=== PATIENT | female | born 1945 | race Caucasian/White ===

== ENCOUNTER → 2018-02-03 | Outpatient (CLI) | payer MEDICARE, BC ==
--- NOTE | 2018-02-03 12:48 | US ---
EXAMINATION TYPE: US venous doppler duplex LE RT DATE OF EXAM: 02/03/2018 12:29 PM COMPARISON: NONE CLINICAL HISTORY: Pain in Rt Leg M79.604. Severe right groin pain; prior DVT right leg SIDE PERFORMED: Right TECHNIQUE: The lower extremity deep venous system is examined utilizing real time linear array sonog fidencio with graded compression, doppler sonography and color-flow sonography. VESSELS IMAGED: Common Femoral Vein Deep Femoral Vein Greater Saphenous Vein * Femoral Vein Popliteal Vein Small Saphenous Vein * Proximal Calf Veins (* superficial vessels) Right Leg: Positive for non occluding DVT right CFV, and in upper duplicate Deep Femoral Vein Right popliteal complex fossa fluid collection is also noted = 3.8 x 2.9 x 1.5cm. Suspect small to m oderate-sized popliteal cyst. Tech findings called to [place] at Dr Alanis's [facility] at exam's end. IMPRESSION: Acute partial occlusive DVT is identified right groin region at level of common femora l vein extending into duplicated profunda femoris.
== END | disposition home or self-care (01) ==
LOC: RADUSWWP 11:49
PROVIDERS: ATTEND Family Medicine
DX: I82.411 Acute embolism and thrombosis of right femoral vein (principal)

== ENCOUNTER → 2020-07-31 | Outpatient (CLI) | payer MEDICARE, BC ==
--- NOTE | 2020-07-31 13:59 | US ---
EXAMINATION TYPE: US venous doppler duplex LE LT DATE OF EXAM: 07/31/2020 1:26 PM COMPARISON: NONE CLINICAL HISTORY: 75-year-old female M79.652 pain in left thigh. Pt fell Luigi Suzanne, having left l eg pain and bruising SIDE PERFORMED: Left TECHNIQUE: The lower extremity deep venous system is examined utilizing real time linear array sonog fidencio with graded compression, doppler sonography and color-flow sonography. FINDINGS: VESSELS IMAGED: Common Femoral Vein Deep Femoral Vein Greater Saphenous Vein * Femoral Vein Popliteal Vein Small Saphenous Vein * Proximal Calf Veins (* superficial vessels) Left Leg: Negative for DVT IMPRESSION: No evidence for DVT within the left lower extremity imaged from the groin to the upper calf.
== END | disposition home or self-care (01) ==
LOC: RADUSWWP 13:00
PROVIDERS: ATTEND Family Medicine
DX: M79.651 Pain in right thigh (principal); M79.652 Pain in left thigh

== ENCOUNTER 2022-04-04 09:27 | Emergency (ER) | payer MEDICARE, BC ==
[2022-04-04] MEDS ORDERED: hydrALAZINE HCL 20 MG/ML 1 ML VIAL IVP STA (09:41)
[2022-04-04] MEDS ORDERED: LORazepam 2 MG/ML INJ IV STA (09:41)
[2022-04-04 09:44] VITALS: RESP 18
--- NOTE | 2022-04-04 09:51 | ED ---
General Adult HPI - General Chief complaint: Headache Stated complaint: HTN Time Seen by Provider: 04/04/22 09:40 Source: patient, EMS, RN notes reviewed, old records reviewed Mode of arrival: EMS Limitations: no limitations - History of Present Illness Initial comments: This is a 77-year-old female who presents emergency Department complaining that her blood pressures elevated. Patient went to see her PCP today and her blood pressure systolic was over 200 so the center the emergency department. Patient's only complaint is a mild headache. Patient denies any numbness or weakness. Patient denies chest pain difficulty breathing shortness of breath. Patient denies abdominal pain patient denies nausea vomiting diarrhea. Patient states she's very anxious because she lost her at 58 years and she is having a very difficult time with this. - Related Data Home Medications Medication Instructions Recorded Confirmed Albuterol Nebulized [Ventolin 2.5 mg INHALATION RT-TID PRN 04/04/22 04/04/22 Nebulized] Albuterol Sulfate [Albuterol 1 puff PO RT-Q4H PRN 04/04/22 04/04/22 Sulfate Hfa] Amitriptyline HCl [Elavil] 50 mg PO HS 04/04/22 04/04/22 Aspirin EC [Ecotrin Low Dose] 81 mg PO DAILY 04/04/22 04/04/22 Atorvastatin Calcium [Lipitor] 40 mg PO DAILY 04/04/22 04/04/22 Milnacipran HCl [Savella] 12.5 mg PO BID 04/04/22 04/04/22 Pantoprazole Sodium [Protonix] 40 mg PO DAILY 04/04/22 04/04/22 Zolpidem [Ambien] 5 mg PO HS PRN 04/04/22 04/04/22 fentaNYL 100MCG/HR PATCH 1 patch TRANSDERM Q72H 04/04/22 04/04/22 [Duragesic 100MCG/HR] fentaNYL 12MCG/HR PATCH [Duragesic 1 patch TRANSDERM Q72H 04/04/22 04/04/22 12MCG/HR] tiZANidine [Zanaflex] 4 mg PO TID 04/04/22 04/04/22 Previous Rx's Medication Instructions Recorded amLODIPine [Norvasc] 5 mg PO DAILY #7 tab 04/04/22 Allergies Allergy/AdvReac Type Severity Reaction Status Date / Time gabapentin Allergy Unknown - Verified 04/04/22 09:52 Per PCP meloxicam [From Mobic] Allergy Unknown - Verified 04/04/22 09:52 Per PCP Penicillins Allergy Unknown - Verified 04/04/22 09:52 Per PCP Review of Systems ROS Statement: Those systems with pertinent positive or pertinent negative responses have been documented in the HPI. ROS Other: All systems not noted in ROS Statement are negative. Past Medical History History of Any Multi-Drug Resistant Organisms: None Reported Past Surgical History: Breast Surgery, Cholecystectomy, Hysterectomy, Tonsillectomy Additional Past Surgical History / Comment(s): bilateral mastectomy Past Psychological History: Anxiety Smoking Status: Never smoker Past Alcohol Use History: None Reported Past Drug Use History: None Reported General Exam - General Exam Comments Initial Comments: GENERAL: Patient is well-developed and well-nourished. Patient is nontoxic and well- hydrated and is in mild distress. ENT: Neck is soft and supple. No significant lymphadenopathy is noted. Oropharynx is clear. Moist mucous membranes. Neck has full range of motion without tobias citing any pain. EYES: The sclera were anicteric and conjunctiva were pink and moist. Extraocular movements were intact and pupils were equal round and reactive to light. Eyelids were unremarkable. PULMONARY: Unlabored respirations. Good breath sounds bilaterally. No audible rales rhonchi or wheezing was noted. CARDIOVASCULAR: There is a regular rate and rhythm without any murmurs gallops or rubs. ABDOMEN: Soft and nontender with normal bowel sounds. SKIN: Skin is clear with no lesions or rashes and otherwise unremarkable. NEUROLOGIC: Patient is alert and oriented x3. Cranial nerves II through XII are grossly intact. Motor and sensory are also intact. Normal speech, volume and content. Symmetrical smile. MUSCULOSKELETAL: Normal extremities with adequate strength and full range of motion. LYMPHATICS: No significant lymphadenopathy is noted PSYCHIATRIC: Patient is mildly anxious Limitations: no limitations Course Vital Signs 04/04/22 09:39 Temperature 98.3 F Pulse Rate 76 Respiratory 18 Rate Blood Pressure 204/87 O2 Sat by Pulse 95 Oximetry Medical Decision Making - Medical Decision Making EKG shows sinus rhythm at 71 bpm SC interval 182 QRS is 78 QT interval 396 QTC is 419. Patient's EKG shows no ST segment elevation or depression. Patient received 20 of hydralazine and 0.5 of Ativan. Patient's blood pressure came down about 40 points systolically to 167/63 - Lab Data Result diagrams: 04/04/22 09:47 04/04/22 09:47 Lab Results 04/04/22 04/04/22 04/04/22 Range/Units 09:47 09:47 09:47 WBC 7.4 (3.8-10.6) k/uL RBC 4.39 (3.80-5.40) m/uL Hgb 12.6 (11.4-16.0) gm/dL Hct 39.1 (34.0-46.0) % MCV 89.1 (80.0-100.0) fL MCH 28.6 (25.0-35.0) pg MCHC 32.2 (31.0-37.0) g/dL RDW 13.9 (11.5-15.5) % Plt Count 377 (150-450) k/uL MPV 7.5 Neutrophils % 79 % Lymphocytes % 14 % Monocytes % 3 % Eosinophils % 2 % Basophils % 1 % Neutrophils # 5.8 (1.3-7.7) k/uL Lymphocytes # 1.0 (1.0-4.8) k/uL Monocytes # 0.3 (0-1.0) k/uL Eosinophils # 0.2 (0-0.7) k/uL Basophils # 0.1 (0-0.2) k/uL PT 10.5 (9.0-12.0) sec INR 1.0 (<1.2) APTT 24.6 (22.0-30.0) sec Sodium 139 (137-145) mmol/L Potassium 4.0 (3.5-5.1) mmol/L Chloride 107 (98-107) mmol/L Carbon Dioxide 23 (22-30) mmol/L Anion Gap 9 mmol/L BUN 13 (7-17) mg/dL Creatinine 0.56 (0.52-1.04) mg/dL Est GFR (CKD-EPI)AfAm >90 (>60 ml/min/1.73 sqM) Est GFR (CKD-EPI)NonAf 89 (>60 ml/min/1.73 sqM) Glucose 109 H (74-99) mg/dL Calcium 8.8 (8.4-10.2) mg/dL Magnesium 1.9 (1.6-2.3) mg/dL Total Bilirubin 0.7 (0.2-1.3) mg/dL AST 28 (14-36) U/L ALT 13 (4-34) U/L Alkaline Phosphatase 103 (38-126) U/L Troponin I (0.000-0.034) ng/mL Total Protein 6.9 (6.3-8.2) g/dL Albumin 4.0 (3.5-5.0) g/dL 04/04/22 Range/Units 09:47 WBC (3.8-10.6) k/uL RBC (3.80-5.40) m/uL Hgb (11.4-16.0) gm/dL Hct (34.0-46.0) % MCV (80.0-100.0) fL MCH (25.0-35.0) pg MCHC (31.0-37.0) g/dL RDW (11.5-15.5) % Plt Count (150-450) k/uL MPV Neutrophils % % Lymphocytes % % Monocytes % % Eosinophils % % Basophils % % Neutrophils # (1.3-7.7) k/uL Lymphocytes # (1.0-4.8) k/uL Monocytes # (0-1.0) k/uL Eosinophils # (0-0.7) k/uL Basophils # (0-0.2) k/uL PT (9.0-12.0) sec INR (<1.2) APTT (22.0-30.0) sec Sodium (137-145) mmol/L Potassium (3.5-5.1) mmol/L Chloride (98-107) mmol/L Carbon Dioxide (22-30) mmol/L Anion Gap mmol/L BUN (7-17) mg/dL Creatinine (0.52-1.04) mg/dL Est GFR (CKD-EPI)AfAm (>60 ml/min/1.73 sqM) Est GFR (CKD-EPI)NonAf (>60 ml/min/1.73 sqM) Glucose (74-99) mg/dL Calcium (8.4-10.2) mg/dL Magnesium (1.6-2.3) mg/dL Total Bilirubin (0.2-1.3) mg/dL AST (14-36) U/L ALT (4-34) U/L Alkaline Phosphatase (38-126) U/L Troponin I <0.012 (0.000-0.034) ng/mL Total Protein (6.3-8.2) g/dL Albumin (3.5-5.0) g/dL Disposition Clinical Impression: Hypertensive urgency, Anxiety Disposition: HOME SELF-CARE Instructions (If sedation given, give patient instructions): Hypertension (ED) Additional Instructions: Patient should take her blood pressure before every meal and before bed and document so that she can follow up with some data with her primary medical care doctor. Prescriptions: amLODIPine [Norvasc] 5 mg PO DAILY #7 tab Is patient prescribed a controlled substance at d/c from ED?: No Referrals: Paddy Alanis MD [Primary Care Provider] - 1-2 days Time of Disposition: 11:29
[2022-04-04 10:23] LABS: Basophils # (A) 0.1 k/uL (0-0.2); Basophils % (A) 1 %; Eosinophils # (A) 0.2 k/uL (0-0.7); Eosinophils % (A) 2 %; HCT 39.1 % (34.0-46.0); HGB 12.6 gm/dL (11.4-16.0); Lymphocytes % (A) 14 %; MCH 28.6 pg (25.0-35.0); MCHC 32.2 g/dL (31.0-37.0); MCV 89.1 fL (80.0-100.0); Mean Platelet Volume 7.5; Monocytes # (A) 0.3 k/uL (0-1.0); Monocytes % (A) 3 %; Neutrophils # (A) 5.8 k/uL (1.3-7.7); Neutrophils % (A) 79 %; Platelet Count 377 k/uL (150-450); RBC 4.39 m/uL (3.80-5.40); RDW 13.9 % (11.5-15.5); WBC 7.4 k/uL (3.8-10.6)
[2022-04-04 10:30] LABS: ALT 13 U/L (4-34); AST 28 U/L (14-36); African American GFR (CKD) >90 (>60 ml/min/1.73 sqM); Alkaline Phosphatase 103 U/L (38-126); Anion Gap 9 mmol/L; Blood Urea Nitrogen 13 mg/dL (7-17); Calcium 8.8 mg/dL (8.4-10.2); Carbon Dioxide 23 mmol/L (22-30); Chloride 107 mmol/L (98-107); Glucose 109 mg/dL (74-99); Magnesium 1.9 mg/dL (1.6-2.3); Non-African American GFR(CKD) 89 (>60 ml/min/1.73 sqM); Sodium 139 mmol/L (137-145); Total Bilirubin 0.7 mg/dL (0.2-1.3); Total Protein 6.9 g/dL (6.3-8.2)
[2022-04-04 10:33] LABS: Partial Thromboplastin Time 24.6 sec (22.0-30.0); Prothrombin Time 10.5 sec (9.0-12.0)
--- NOTE | 2022-04-04 11:04 | CT ---
EXAM: CT Head Without Intravenous Contrast CLINICAL HISTORY: Hypertension and headache for 2 days. Not currently on HTN meds TECHNIQUE: Axial computed tomography images of the head/brain without intravenous contrast. CTDI is 53.5 mGy and DLP is 1142.4 mGy-cm. This CT exam was performed using one or more of the following dose reduction techniques: automated exposure control, adjustment of the mA and/or kV according to patient size, and/or use of iterative reconstruction technique. COMPARISON: None FINDINGS: There is no acute intracranial hemorrhage or major vascular territory infarct. No mass effect or midline shift seen. There is prominence of the ventricles and sulci consistent with generalized parenchymal volume loss. Scattered hypodensities throughout the periventricular and subcortical white matter are noted, likely sequela of chronic microvascular changes. The calvarium is intact. Bilateral lens replacements noted. The visualized paranasal sinuses and mastoid air cells are clear. IMPRESSION: No acute intracranial pathology. Generalized parenchymal volume loss and sequela of chronic microvascular ischemic angiopathy.
--- NOTE | 2022-04-04 11:19 | XR ---
EXAM: XR Chest, 2 Views CLINICAL HISTORY: ITS. REASON XR Reason: Chest Pain TECHNIQUE: Frontal and lateral views of the chest. COMPARISON: No relevant prior studies available. FINDINGS: Lungs: Bronchial wall thickening to be correlated for bronchitis. Pleural space: Unremarkable. No pneumothorax. Heart: Borderline cardiomegaly. Mediastinum: Aortic atherosclerosis. Bones/joints: Osteopenia and degenerative changes. Thoracolumbar levocurvature. IMPRESSION: Bronchial wall thickening. Correlate for bronchitis. No lobar consolidation. Borderline cardiomegaly. No overt edema.
[2022-04-04] MEDS ORDERED: KETOROLAC 15 MG/ML 1 ML VIAL IVP STA (11:31)
[2022-04-04 12:02] VITALS: BP 164/70; PULSE 98; TEMP 97.5
== END 2022-04-04 11:59 | disposition home or self-care (01) ==
LOC: EC 09:27
DX: I16.0 Hypertensive urgency (principal); F41.9 Anxiety disorder, unspecified; Z88.0 Allergy status to penicillin; Z88.6 Allergy status to analgesic agent; Z88.8 Allergy status to other drugs, medicaments and biological substances
CPT/HCPCS: 99285; 96374; 96375; 36415; 93005; 80053; 83735; 84484; 85025; 85610; 85730; 71046; 70450; J2060; J0360; J1885

== ENCOUNTER 2024-06-20 12:34 | Emergency (ER) | payer MEDICARE, BC ==
[2024-06-20 12:48] VITALS: TEMP 98.3
[2024-06-20 14:29] LABS: ALT 13 U/L (4-34); AST 23 U/L (14-36); Acetaminophen 20.2 ug/mL; African American GFR (CKD) 78 (>60 ml/min/1.73 sqM); Albumin 4.3 g/dL (3.5-5.0); Alcohol <10 mg/dL; Alkaline Phosphatase 74 U/L (38-126); Anion Gap 12 mmol/L; Blood Urea Nitrogen 18 mg/dL (7-17); Calcium 9.3 mg/dL (8.4-10.2); Carbon Dioxide 20 mmol/L (22-30); Chloride 109 mmol/L (98-107); Glucose 134 mg/dL (74-99); Non-African American GFR(CKD) 67 (>60 ml/min/1.73 sqM); Potassium 3.8 mmol/L (3.5-5.1); Salicylate 12.6 mg/dL; Sodium 141 mmol/L (137-145); Total Bilirubin 0.5 mg/dL (0.2-1.3); Total Protein 7.6 g/dL (6.3-8.2)
--- NOTE | 2024-06-20 14:30 | XR ---
EXAMINATION TYPE: XR chest 2V DATE OF EXAM: 06/20/2024 CLINICAL HISTORY: Confusion and weakness. TECHNIQUE: Frontal and lateral views of the chest are obtained. COMPARISON: Prior chest x-ray April 04, 2022 FINDINGS: Overlying EKG leads are redemonstrated. There is no suspicious focal air space opacity, ple ural effusion, or pneumothorax seen. The cardiac silhouette size is stable and within normal limits. Scoliosis of the thoracolumbar spine is redemonstrated. IMPRESSION: No acute process. [facility], , 06/20/2024 2:28 PM
[2024-06-20 14:40] LABS: Basophils # (A) 0.1 k/uL (0-0.2); Basophils % (A) 1 %; Eosinophils % (A) 1 %; HCT 45.6 % (34.0-46.0); HGB 14.5 gm/dL (11.4-16.0); Lymphocytes # (A) 1.4 k/uL (1.0-4.8); Lymphocytes % (A) 17 %; MCH 27.9 pg (25.0-35.0); MCHC 31.7 g/dL (31.0-37.0); Monocytes # (A) 0.5 k/uL (0-1.0); Monocytes % (A) 5 %; Neutrophils # (A) 6.3 k/uL (1.3-7.7); Neutrophils % (A) 75 %; Platelet Count 360 k/uL (150-450); RBC 5.18 m/uL (3.80-5.40); RDW 14.4 % (11.5-15.5); WBC 8.4 k/uL (3.8-10.6)
[2024-06-20 14:59] LABS: Partial Thromboplastin Time 23.4 sec (22.0-30.0); Prothrombin Time 11.3 sec (10.0-12.5)
[2024-06-20] MEDS: ACETAMINOPHEN TAB 325 MG TAB PO STA (16:08)
--- NOTE | 2024-06-20 17:03 | ED ---
Altered Mental Status HPI - General Chief Complaint: Altered Mental Status Stated Complaint: AMS Time Seen by Provider: 06/20/24 12:45 Source: patient, family Mode of arrival: ambulatory Limitations: no limitations - History of Present Illness Initial Comments: 79-year-old female brought into the emergency department accompanied by her granddaughter. They are concerned about the patient being confused today. They state that they went to pick her up at her house and she was stating that she wanted to go home. She did not think that she was at her house. They state that the patient has had waxing and waning confusion for the past couple of months. There is concern for possible dementia. Patient has been leaving the house in the middle of the night and there were several times when the daughter and granddaughter had to search for the patient. Patient arrives and is very ornery. She denies any symptoms. States that she knew on to come to the hospital in the first place. Patient has difficulty answering orientation questions. There is no lateralizing symptoms. Denies any weakness in her upper or lower extremities. No falls. No head injury. They are concerned for possible UTI. Patient has no symptoms to include dysuria, hematuria or difficulty voiding. No bowel symptoms to include diarrhea, constipation, black or bloody stools. No recent medication changes. No report of any drug use. Patient does have a history of A-fib and takes Eliquis. No other alleviating, precipitating modifying factors - Related Data Home Medications Medication Instructions Recorded Confirmed Albuterol Nebulized [Ventolin 2.5 mg INHALATION RT-TID PRN 04/04/22 06/28/24 Nebulized] Albuterol Sulfate [Albuterol 2 puff INHALATION RT-Q4H PRN 04/04/22 06/28/24 Sulfate Hfa] Aspirin EC [Ecotrin Low Dose] 81 mg PO DAILY 04/04/22 06/28/24 Milnacipran HCl [Savella] 12.5 mg PO BID 04/04/22 06/28/24 Pantoprazole Sodium [Protonix] 40 mg PO DAILY 04/04/22 06/28/24 fentaNYL 100MCG/HR PATCH 1 patch TRANSDERM Q72H 04/04/22 06/28/24 [Duragesic 100MCG/HR] tiZANidine [Zanaflex] 4 mg PO TID PRN 04/04/22 06/28/24 Apixaban [Eliquis] 5 mg PO BID 06/20/24 06/28/24 Atorvastatin [Lipitor] 80 mg PO DAILY 06/20/24 06/28/24 Sertraline [Zoloft] 25 mg PO DAILY 06/20/24 06/28/24 traZODone HCL [Desyrel] 25 mg PO HS 06/28/24 06/28/24 Previous Rx's Medication Instructions Recorded amLODIPine [Norvasc] 5 mg PO DAILY #7 tab 04/04/22 Allergies Allergy/AdvReac Type Severity Reaction Status Date / Time gabapentin Allergy Unknown - Verified 06/28/24 11:39 Per PCP meloxicam [From Mobic] Allergy Unknown - Verified 06/28/24 11:39 Per PCP Penicillins Allergy Unknown - Verified 06/28/24 11:39 Per PCP warfarin Allergy Unknown Verified 06/28/24 11:39 Review of Systems ROS Statement: Those systems with pertinent positive or pertinent negative responses have been documented in the HPI. ROS Other: All systems not noted in ROS Statement are negative. Past Medical History Past Medical History: Atrial Fibrillation, Asthma, GERD/Reflux, Hyperlipidemia, Hypertension, Myocardial Infarction (CT) History of Any Multi-Drug Resistant Organisms: None Reported Past Surgical History: Breast Surgery, Cholecystectomy, Hysterectomy, Joint Replacement, Tonsillectomy Additional Past Surgical History / Comment(s): bilateral mastectomy Past Psychological History: Anxiety, Depression Smoking Status: Never smoker Past Alcohol Use History: None Reported Past Drug Use History: None Reported General Exam Limitations: no limitations General appearance: alert, in no apparent distress Head exam: Present: atraumatic, normocephalic, normal inspection Eye exam: Present: normal appearance, PERRL, EOMI. Absent: scleral icterus, conjunctival injection, periorbital swelling ENT exam: Present: normal exam, mucous membranes moist Neck exam: Present: normal inspection. Absent: tenderness, meningismus, lymphadenopathy Respiratory exam: Present: normal lung sounds bilaterally. Absent: respiratory distress, wheezes, rales, rhonchi, stridor Cardiovascular Exam: Present: regular rate, normal rhythm, normal heart sounds. Absent: systolic murmur, diastolic murmur, rubs, gallop, clicks GI/Abdominal exam: Present: soft, normal bowel sounds. Absent: distended, tenderness, guarding, rebound, rigid Extremities exam: Present: normal inspection, full ROM, normal capillary refill. Absent: tenderness, pedal edema, joint swelling, calf tenderness Back exam: Present: normal inspection Neurological exam: Present: alert, CN II-XII intact, other (Patient is oriented to self. With time, the patient is oriented to place) Psychiatric exam: Present: normal affect, normal mood Skin exam: Present: warm, dry, intact, normal color. Absent: rash Course Vital Signs 06/20/24 06/20/24 12:43 18:07 Temperature 98.3 F Pulse Rate 128 H 62 Respiratory 18 16 Rate Blood Pressure 123/84 135/85 O2 Sat by Pulse 97 98 Oximetry Medical Decision Making - Medical Decision Making Was pt. sent in by a medical professional or institution (Dr. PA, DIGITAL MARKETING MANAGER, urgent care, hospital, or fdc...) When possible be specific @ -No Did you speak to anyone other than the patient for history (EMS, parent, family, police, friend...)? What history was obtained from this source @ -I spoke with granddaughter and daughter for history Did you review nursing and triage notes (agree or disagree)? Why? @ -I reviewed and agree with nursing and triage notes Were old charts reviewed (outside hosp., previous admission, EMS record, old EKG, old radiological studies, urgent care reports/EKG's, fdc records)? Report findings @ -No old charts were reviewed Differential Diagnosis (chest pain, altered mental status, abdominal pain women, abdominal pain men, vaginal bleeding, weakness, fever, dyspnea, syncope, headache, dizziness, GI bleed, back pain, seizure, CVA, palpatations, mental health, musculoskeletal)? @ -Differential Altered Mental Status: Hypoglycemia, DKA, hypercapnia, ETOH, overdose, CO poisoning, trauma, myxedema coma, HTN encephalopathy, infection, encephalitis, psychosis, intercranial hemorrhage, hepatic encephalopathy, meningitis, CVA, this is not meant to be an all-inclusive list EKG interpreted by me (3pts min.). @ -yes and demonstrates atrial flutter with a rate of 105. QRS 78. QTc of 410. No acute ST segment elevations or depressions X-rays interpreted by me (1pt min.). @ -None done CT interpreted by me (1pt min.). @ -Yes which demonstrates no acute process U/S interpreted by me (1pt. min.). @ -None done What testing was considered but not performed or refused? (CT, X-rays, U/S, labs)? Why? @ -None What meds were considered but not given or refused? Why? @ -None Did you discuss the management of the patient with other professionals (professionals i.e. Dr., PA, DIGITAL MARKETING MANAGER, lab, RT, psych nurse, psychologist social, pulmonary nurse practitioner, teacher, credit administration officer, casey saw operator)? Give summary @ -No Was smoking cessation discussed for >3mins.? @ -No Was critical care preformed (if so, how long)? @ -No Were there social determinants of health that impacted care today? How? (Homelessness, low income, unemployed, alcoholism, drug addiction, transportation, low edu. Level, literacy, decrease access to med. care, half-way, rehab)? @ -No Was there de-escalation of care discussed even if they declined (Discuss DNR or withdrawal of care, Hospice)? DNR status @ -No What co-morbidities impacted this encounter? (DM, HTN, Smoking, COPD, CAD, Cancer, CVA, ARF, Chemo, Hep., AIDS, mental health diagnosis, sleep apnea, morbi d obesity)? @ -Chronic pain Was patient admitted / discharged? Hospital course, mention meds given and route, prescriptions, significant lab abnormalities, going to OR and other pertinent info. @ -Upon arrival patient seen and evaluated in room 5. Thorough history and physical exam was performed. Patient is limited in providing history as she states she does not want to be in the emergency department. She was agreeable to laboratory studies and a CT of the brain. These are performed with no acute findings. Urinalysis does not demonstrate infection. CT the brain demonstrates no acute process. I did recommend that the patient be admitted to the hospital due to alterations in mental status however family states that this has been chronic and progressive with today being the worst. They do feel that she is safe at home and wanted to rule out any type of infection. Patient is awake, alert. She is adamant that she does not want to be hospitalized. Family does not support the decision. At this time I did recommend frequent evaluation of the patient daily by family members. I recommend that they talk to their primary care doctor about possible new placement as I am concerned about the patient living on her own without full assistance. Granddaughter states that she is able to watch after the patient. I instructed them that they should return for any new or worsening symptoms or should they be agreeable to admission. Patient discharged with a guarded prognosis Undiagnosed new problem with uncertain prognosis? @ -No Drug Therapy requiring intensive monitoring for toxicity (Heparin, Nitro, Insulin, Cardizem)? @ -No Were any procedures done? @ -No Diagnosis/symptom? @ -Acute on chronic encephalopathy Acute, or Chronic, or Acute on Chronic? @ -Acute Uncomplicated (without systemic symptoms) or Complicated (systemic symptoms)? @ -Complicated Side effects of treatment? @ -No Exacerbation, Progression, or Severe Exacerbation? @ -No Poses a threat to life or bodily function? How? (Chest pain, USA, CT, pneumonia, PE, COPD, DKA, ARF, appy, cholecystitis, CVA, Diverticulitis, Homicidal, Suicidal, threat to staff... and all critical care pts) @ -Yes his family states that she has been getting out of the house - Lab Data Result diagrams: 06/20/24 14:08 06/20/24 14:08 Lab Results 06/20/24 06/20/24 06/20/24 Range/Units 14:08 14:08 14:08 WBC 8.4 (3.8-10.6) k/uL RBC 5.18 (3.80-5.40) m/uL Hgb 14.5 (11.4-16.0) gm/dL Hct 45.6 (34.0-46.0) % MCV 88.0 (80.0-100.0) fL MCH 27.9 (25.0-35.0) pg MCHC 31.7 (31.0-37.0) g/dL RDW 14.4 (11.5-15.5) % Plt Count 360 (150-450) k/uL MPV 8.0 Neutrophils % 75 % Lymphocytes % 17 % Monocytes % 5 % Eosinophils % 1 % Basophils % 1 % Neutrophils # 6.3 (1.3-7.7) k/uL Lymphocytes # 1.4 (1.0-4.8) k/uL Monocytes # 0.5 (0-1.0) k/uL Eosinophils # 0.0 (0-0.7) k/uL Basophils # 0.1 (0-0.2) k/uL PT 11.3 (10.0-12.5) sec INR 1.0 (<1.2) APTT 23.4 (22.0-30.0) sec Sodium 141 (137-145) mmol/L Potassium 3.8 (3.5-5.1) mmol/L Chloride 109 H (98-107) mmol/L Carbon Dioxide 20 L (22-30) mmol/L Anion Gap 12 mmol/L BUN 18 H (7-17) mg/dL Creatinine 0.82 (0.52-1.04) mg/dL Est GFR (CKD-EPI)AfAm 78 (>60 ml/min/1.73 sqM) Est GFR (CKD-EPI)NonAf 67 (>60 ml/min/1.73 sqM) Glucose 134 H (74-99) mg/dL Calcium 9.3 (8.4-10.2) mg/dL Total Bilirubin 0.5 (0.2-1.3) mg/dL AST 23 (14-36) U/L ALT 13 (4-34) U/L Alkaline Phosphatase 74 (38-126) U/L Ammonia (<30) umol/L Troponin I (0.000-0.034) ng/mL Total Protein 7.6 (6.3-8.2) g/dL Albumin 4.3 (3.5-5.0) g/dL TSH 0.791 (0.465-4.680) mIU/L Urine Color Urine Appearance (Clear) Urine pH (5.0-8.0) Ur Specific [place] (1.001-1.035) Urine Protein (Negative) Urine Glucose (UA) (Negative) Urine Ketones (Negative) Urine Blood (Negative) Urine Nitrite (Negative) Urine Bilirubin (Negative) Urine Urobilinogen (<2.0) mg/dL Ur Leukocyte Esterase (Negative) Salicylates 12.6 mg/dL Urine Opiates Screen (NotDetected) Ur Oxycodone Screen (NotDetected) Urine Methadone Screen (NotDetected) Acetaminophen 20.2 ug/mL Ur Barbiturates Screen (NotDetected) U Tricyclic Antidepress (NotDetected) Ur Phencyclidine Scrn (NotDetected) Ur Amphetamines Screen (NotDetected) U Methamphetamines Scrn (NotDetected) U Benzodiazepines Scrn (NotDetected) Urine Cocaine Screen (NotDetected) U Marijuana (THC) Screen (NotDetected) Serum Alcohol <10 mg/dL 06/20/24 06/20/24 06/20/24 Range/Units 14:08 14:08 17:37 WBC (3.8-10.6) k/uL RBC (3.80-5.40) m/uL Hgb (11.4-16.0) gm/dL Hct (34.0-46.0) % MCV (80.0-100.0) fL MCH (25.0-35.0) pg MCHC (31.0-37.0) g/dL RDW (11.5-15.5) % Plt Count (150-450) k/uL MPV Neutrophils % % Lymphocytes % % Monocytes % % Eosinophils % % Basophils % % Neutrophils # (1.3-7.7) k/uL Lymphocytes # (1.0-4.8) k/uL Monocytes # (0-1.0) k/uL Eosinophils # (0-0.7) k/uL Basophils # (0-0.2) k/uL PT (10.0-12.5) sec INR (<1.2) APTT (22.0-30.0) sec Sodium (137-145) mmol/L Potassium (3.5-5.1) mmol/L Chloride (98-107) mmol/L Carbon Dioxide (22-30) mmol/L Anion Gap mmol/L BUN (7-17) mg/dL Creatinine (0.52-1.04) mg/dL Est GFR (CKD-EPI)AfAm (>60 ml/min/1.73 sqM) Est GFR (CKD-EPI)NonAf (>60 ml/min/1.73 sqM) Glucose (74-99) mg/dL Calcium (8.4-10.2) mg/dL Total Bilirubin (0.2-1.3) mg/dL AST (14-36) U/L ALT (4-34) U/L Alkaline Phosphatase (38-126) U/L Ammonia <9 (<30) umol/L Troponin I <0.012 (0.000-0.034) ng/mL Total Protein (6.3-8.2) g/dL Albumin (3.5-5.0) g/dL TSH (0.465-4.680) mIU/L Urine Color Yellow Urine Appearance Clear (Clear) Urine pH 5.5 (5.0-8.0) Ur Specific [place] 1.038 H (1.001-1.035) Urine Protein Trace H (Negative) Urine Glucose (UA) Negative (Negative) Urine Ketones Negative (Negative) Urine Blood Negative (Negative) Urine Nitrite Negative (Negative) Urine Bilirubin Negative (Negative) Urine Urobilinogen <2.0 (<2.0) mg/dL Ur Leukocyte Esterase Negative (Negative) Salicylates mg/dL Urine Opiates Screen Not Detected (NotDetected) Ur Oxycodone Screen Not Detected (NotDetected) Urine Methadone Screen Not Detected (NotDetected) Acetaminophen ug/mL Ur Barbiturates Screen Not Detected (NotDetected) U Tricyclic Antidepress Not Detected (NotDetected) Ur Phencyclidine Scrn Not Detected (NotDetected) Ur Amphetamines Screen Not Detected (NotDetected) U Methamphetamines Scrn Not Detected (NotDetected) U Benzodiazepines Scrn Detected H (NotDetected) Urine Cocaine Screen Not Detected (NotDetected) U Marijuana (THC) Screen Detected H (NotDetected) Serum Alcohol mg/dL Disposition Clinical Impression: Acute encephalopathy Disposition: HOME SELF-CARE Condition: Stable Instructions (If sedation given, give patient instructions): Altered Mental Status (ED) Additional Instructions: Please follow-up with your doctor at your scheduled appointment. They may recommend that you see a neurologist. Return for any new or worsening symptoms Is patient prescribed a controlled substance at d/c from ED?: No Referrals: Paddy Alanis MD [Primary Care Provider] - 1-2 days Time of Disposition: 17:56
--- NOTE | 2024-06-20 17:44 | CT ---
EXAMINATION TYPE: CT brain wo con DATE OF EXAM: 06/20/2024 5:22 PM COMPARISON: December 16. CLINICAL INDICATION: Female, 79 years old with history of ams, confusion TECHNIQUE: Brain: Axial CT images of the brain were obtained with coronal and sagittal reformats created and rev iewed. Contrast used: None. Oral contrast used: None. CT DLP: 1168 mGycm, Automated exposure control for dose reduction was used. FINDINGS: Brain: Extra-axial spaces: No abnormal extra-axial fluid collections. Ventricular system: Dilatation in proportion to cerebral atrophy. Cerebral parenchyma: Cerebral atrophy. No acute intraparenchymal hemorrhage or mass effect. The willams -white junction is well differentiated. Scattered hypoattenuating areas are seen within the white mat ter. Cerebellum: Unremarkable. Mass effect: No evidence of midline shift. Intracranial vasculature: Atherosclerotic calcifications of the intracranial vessels. Soft tissues: Normal. Calvarium/osseous structures: No depressed skull fracture. Paranasal sinuses and mastoid air cells: Mild scattered paranasal sinus disease. Visualized orbits: Bilateral aphakia IMPRESSION: 1. No acute intracranial process. 2. Nonspecific white matter changes, likely secondary to chronic small vessel ischemic disease. [facility], , 06/20/2024 5:42 PM
[2024-06-20 17:49] LABS: Appearance,Urine Clear (Clear); Bilirubin,Urine Negative (Negative); Blood,Urine Negative (Negative); Color,Urine Yellow; Glucose,Urine (UA) Negative (Negative); Ketones,Urine Negative (Negative); Leukocyte Esterase,Urine Negative (Negative); Nitrite,Urine Negative (Negative); PH, Urine 5.5 (5.0-8.0); Protein,Urine Trace (Negative); Specific Gravity,Urine 1.038 (1.001-1.035); Urobilinogen,Urine <2.0 mg/dL (<2.0)
[2024-06-20 18:01] LABS: Amphetamine Screen,Urine Not Detected (NotDetected); Barbiturate Screen,Urine Not Detected (NotDetected); Benzodiazepines Screen,Urine Detected (NotDetected); Cocaine Screen,Urine Not Detected (NotDetected); Methadone Screen, Urine Not Detected (NotDetected); Opiate Screen,Urine Not Detected (NotDetected); Oxycodone Screen, Urine Not Detected (NotDetected); Phencyclidine Screen,Urine Not Detected (NotDetected); Tricyclic Antidepressant,Urine Not Detected (NotDetected); Urn Cannabinoid Scrn Detected (NotDetected)
[2024-06-20 18:08] VITALS: BP 135/85; PULSE 62; RESP 16
== END 2024-06-20 18:10 | disposition home or self-care (01) ==
LOC: EC 12:34
DX: G93.40 Encephalopathy, unspecified (principal); Z88.0 Allergy status to penicillin; Z88.8 Allergy status to other drugs, medicaments and biological substances
CPT/HCPCS: 36415; 93005; 80053; 84443; 82140; 84484; 85025; 85610; 85730; 81003; 80306; 80143; 80179; 71046; 70450; 99285; G0480; 80320; 99284

== ENCOUNTER 2024-06-27 14:19 | Inpatient (IN) | payer BC, MEDICARE ==
--- NOTE | 2024-06-27 14:21 | ED ---
General Adult HPI - General Stated complaint: poss overdose Time Seen by Provider: 06/27/24 14:20 - History of Present Illness Initial comments: Rhonda is-year-old female brought to the ER today for evaluation of altered mental status. History is provided by EMS and the patient family. Lives at home with her 37-year-old son who is on disability due to cognitive delay, he is able to communicate with his sister and the patient's granddaughter whenever the patient has any needs. Granddaughter who is a nurse practitioner reports she has been getting called daily to come check on her grandma. She was there on Friday she bathed her grandmother placed a new fentanyl patch on her which she has for her chronic back pain. Son called family today because there grandma was altered, slurring her speech not really making sense. Granddaughter came to assess her and noted that the patient had 3 fentanyl patches on her, she suspects the patient place these on herself. She removed 2 of them but patient did not improve so EMS was called for transport to the hospital. EMS reports that the patient was somnolent somnolent but did wake to voice they did give her a dose of Narcan the patient began vomiting. - Related Data Home Medications Medication Instructions Recorded Confirmed Albuterol Nebulized [Ventolin 2.5 mg INHALATION RT-TID PRN 04/04/22 06/20/24 Nebulized] Albuterol Sulfate [Albuterol 2 puff INHALATION RT-Q4H PRN 04/04/22 06/20/24 Sulfate Hfa] Aspirin EC [Ecotrin Low Dose] 81 mg PO DAILY 04/04/22 06/20/24 Milnacipran HCl [Savella] 12.5 mg PO BID 04/04/22 06/20/24 Pantoprazole Sodium [Protonix] 40 mg PO DAILY 04/04/22 06/20/24 fentaNYL 100MCG/HR PATCH 1 patch TRANSDERM Q72H 04/04/22 06/20/24 [Duragesic 100MCG/HR] tiZANidine [Zanaflex] 4 mg PO TID PRN 04/04/22 06/20/24 Apixaban [Eliquis] 5 mg PO BID 06/20/24 06/20/24 Atorvastatin [Lipitor] 80 mg PO DAILY 06/20/24 06/20/24 Sertraline [Zoloft] 25 mg PO DAILY 06/20/24 06/20/24 Previous Rx's Medication Instructions Recorded amLODIPine [Norvasc] 5 mg PO DAILY #7 tab 04/04/22 Allergies Allergy/AdvReac Type Severity Reaction Status Date / Time gabapentin Allergy Unknown - Verified 06/27/24 14:33 Per PCP meloxicam [From Mobic] Allergy Unknown - Verified 06/27/24 14:33 Per PCP Penicillins Allergy Unknown - Verified 06/27/24 14:33 Per PCP warfarin Allergy Unknown Verified 06/27/24 14:33 Review of Systems ROS Statement: Those systems with pertinent positive or pertinent negative responses have been documented in the HPI. ROS Other: All systems not noted in ROS Statement are negative. Past Medical History Past Medical History: Atrial Fibrillation, Asthma, GERD/Reflux, Hyperlipidemia, Hypertension, Myocardial Infarction ([place]) History of Any Multi-Drug Resistant Organisms: None Reported Past Surgical History: Breast Surgery, Cholecystectomy, Hysterectomy, Joint Replacement, Tonsillectomy Additional Past Surgical History / Comment(s): bilateral mastectomy Past Psychological History: Anxiety, Depression Smoking Status: Never smoker Past Alcohol Use History: None Reported Past Drug Use History: None Reported Course Vital Signs 06/27/24 06/27/24 14:24 17:51 Temperature 100.2 F H 99 F Pulse Rate 121 H 107 H Respiratory 18 18 Rate Blood Pressure 176/94 120/79 O2 Sat by Pulse 95 96 Oximetry EKG Findings - EKG Comments: EKG Findings:: EKG interpreted by me EKG obtained due to tachycardia EKG obtained at 1434 rate is 140 rhythm is narrow complex irregularly irregular rhythm consistent with an atrial fibrillation which patient has history of. There are some movement artifact but no definitive ST elevations or depressions no evidence of acute ischemia or infarction. Medical Decision Making - Medical Decision Making Was pt. sent in by a medical professional or institution (, PA, FIELD CASE MANAGER, urgent care, hospital, or [facility]...) When possible be specific @ -FIELD CASE MANAGER - patients granddaughter Did you speak to anyone other than the patient for history (EMS, parent, family, police, friend...)? What history was obtained from this source @ -EMS, family Did you review nursing and triage notes (agree or disagree)? Why? @ -I reviewed and agree with nursing and triage notes Were old charts reviewed (outside hosp., previous admission, EMS record, old EKG, old radiological studies, urgent care reports/EKG's, [facility] records)? Report findings @ -No old charts were reviewed Differential Diagnosis (chest pain, altered mental status, abdominal pain women, abdominal pain men, vaginal bleeding, weakness, fever, dyspnea, syncope, headache, dizziness, GI bleed, back pain, seizure, CVA, palpatations, mental health)? @ -Differential Altered Mental Status: Hypoglycemia, DKA, hypercapnia, ETOH, overdose, CO poisoning, trauma, myxedema coma, HTN encephalopathy, infection, encephalitis, psychosis, intercranial hemorrhage, hepatic encephalopathy, meningitis, CVA, this is not meant to be an all-inclusive list EKG interpreted by me (3pts min.). @ -As above X-rays interpreted by me (1pt min.). @ -None done CT interpreted by me (1pt min.). @ -No mass or bleed in the CT of the head . No focal consolidations on CXR U/S interpreted by me (1pt. min.). @ -None done What testing was considered but not performed or refused? (CT, X-rays, U/S, labs)? Why? @ -Ultrasound of the liver ordered upon admission due to transaminitis What meds were considered but not given or refused? Why? @ -Narcan Given prior to arrival Did you discuss the management of the patient with other professionals (professionals i.e. , PA, FIELD CASE MANAGER, lab, RT, psych nurse, health care social worker, business lawyer, teacher, job placement officer, case investigator)? Give summary @ -No Was smoking cessation discussed for >3mins.? @ -No Was critical care preformed (if so, how long)? @ -No Were there social determinants of health that impacted care today? How? (Homelessness, low income, unemployed, alcoholism, drug addiction, transportation, low edu. Level, literacy, decrease access to med. care, prison, rehab)? @ -No Was there de-escalation of care discussed even if they declined (Discuss DNR or withdrawal of care, Hospice)? DNR status @ -Yes What co-morbidities impacted this encounter? (DM, HTN, Smoking, COPD, CAD, Cancer, CVA, ARF, Chemo, Hep., AIDS, mental health diagnosis, sleep apnea, morbid obesity)? @ -Dementia, chronic pain, A-fib, hypertension Was patient admitted / discharged? Hospital course, mention meds given and route, prescriptions, significant lab abnormalities, going to OR and other pertinent info. @ -Admit Patient was seen and evaluated, history is obtained from EMS and family at bedside. Patient with progressively declining mental status was found minimally responsive had multiple fentanyl patches on her they were removed she received Narcan she showing signs of withdrawal now. She is tachycardic she is noted to be in A-fib RVR. She appears dehydrated. Labs and fluids were ordered. Head CT and chest x-ray were ordered chest x-ray was negative head CT with chronic changes. Patient's heart rate improved to the low 100s patient care was discussed with Dr. Adam the admitting physician who recommended ultrasound of the liver due to transaminitis and agreed with plan for admission. Family states the patient would not want to be intubated or placed on a ventilator but she is okay with IV medications and compressions. In addition they state that they do not feel she is safe to go back to her residence and she will be discha rged from the hospital to her granddaughter's house when stable. Undiagnosed new problem with uncertain prognosis? @ -No Drug Therapy requiring intensive monitoring for toxicity (Heparin, Nitro, Insu james, Cardizem)? @ -No Were any procedures done? @ -No Diagnosis/symptom? @ -Altered mental status, accidental overdose fib with RVR Acute, or Chronic, or Acute on Chronic? @ -Default Uncomplicated (without systemic symptoms) or Complicated (systemic symptoms)? @ -Complicated Side effects of treatment? @ -No Exacerbation, Progression, or Severe Exacerbation? @ -No Poses a threat to life or bodily function? How? (Chest pain, [place], [place], pneumonia, PE, COPD, DKA, ARF, appy, cholecystitis, CVA, Diverticulitis, Homicidal, Suicidal, threat to staff... and all critical care pts) @ -Yes - Lab Data Result diagrams: 06/27/24 16:33 06/27/24 16:38 Lab Results 06/27/24 06/27/24 06/27/24 Range/Units 15:55 16:11 16:33 WBC 11.6 H (3.8-10.6) k/uL RBC 4.34 (3.80-5.40) m/uL Hgb 12.2 (11.4-16.0) gm/dL Hct 38.4 (34.0-46.0) % MCV 88.6 (80.0-100.0) fL MCH 28.2 (25.0-35.0) pg MCHC 31.8 (31.0-37.0) g/dL RDW 13.9 (11.5-15.5) % Plt Count 304 (150-450) k/uL MPV 7.7 Neutrophils % 93 % Lymphocytes % 4 % Monocytes % 2 % Eosinophils % 0 % Basophils % 0 % Neutrophils # 10.7 H (1.3-7.7) k/uL Lymphocytes # 0.5 L (1.0-4.8) k/uL Monocytes # 0.2 (0-1.0) k/uL Eosinophils # 0.1 (0-0.7) k/uL Basophils # 0.0 (0-0.2) k/uL PT (10.0-12.5) sec INR (<1.2) APTT (22.0-30.0) sec Sodium (137-145) mmol/L Potassium (3.5-5.1) mmol/L Chloride (98-107) mmol/L Carbon Dioxide (22-30) mmol/L Anion Gap mmol/L BUN (7-17) mg/dL Creatinine (0.52-1.04) mg/dL Est GFR (CKD-EPI)AfAm (>60 ml/min/1.73 sqM) Est GFR (CKD-EPI)NonAf (>60 ml/min/1.73 sqM) Glucose (74-99) mg/dL POC Glucose (mg/dL) 124 H (70-110) mg/dL POC Glu Interim Controller ID Betancourt Tra Calcium (8.4-10.2) mg/dL Total Bilirubin (0.2-1.3) mg/dL AST (14-36) U/L ALT (4-34) U/L Alkaline Phosphatase (38-126) U/L Ammonia (<30) umol/L Troponin I (0.000-0.034) ng/mL Total Protein (6.3-8.2) g/dL Albumin (3.5-5.0) g/dL Urine Opiates Screen (NotDetected) Ur Oxycodone Screen (NotDetected) Urine Methadone Screen (NotDetected) Ur Barbiturates Screen (NotDetected) U Tricyclic Antidepress (NotDetected) Ur Phencyclidine Scrn (NotDetected) Ur Amphetamines Screen (NotDetected) U Methamphetamines Scrn (NotDetected) U Benzodiazepines Scrn (NotDetected) Urine Cocaine Screen (NotDetected) U Marijuana (THC) Screen (NotDetected) Influenza Type A (PCR) Not Detected (Not Detectd) Influenza Type B (PCR) Not Detected (Not Detectd) RSV (PCR) Not Detected (Not Detectd) SARS-CoV-2 (PCR) Not Detected (Not Detectd) 06/27/24 06/27/24 06/27/24 Range/Units 16:38 16:38 16:38 WBC (3.8-10.6) k/uL RBC (3.80-5.40) m/uL Hgb (11.4-16.0) gm/dL Hct (34.0-46.0) % MCV (80.0-100.0) fL MCH (25.0-35.0) pg MCHC (31.0-37.0) g/dL RDW (11.5-15.5) % Plt Count (150-450) k/uL MPV Neutrophils % % Lymphocytes % % Monocytes % % Eosinophils % % Basophils % % Neutrophils # (1.3-7.7) k/uL Lymphocytes # (1.0-4.8) k/uL Monocytes # (0-1.0) k/uL Eosinophils # (0-0.7) k/uL Basophils # (0-0.2) k/uL PT 11.4 (10.0-12.5) sec INR 1.1 (<1.2) APTT 24.9 (22.0-30.0) sec Sodium 135 L (137-145) mmol/L Potassium 4.1 (3.5-5.1) mmol/L Chloride 102 (98-107) mmol/L Carbon Dioxide 24 (22-30) mmol/L Anion Gap 9 mmol/L BUN 13 (7-17) mg/dL Creatinine 0.55 (0.52-1.04) mg/dL Est GFR (CKD-EPI)AfAm >90 (>60 ml/min/1.73 sqM) Est GFR (CKD-EPI)NonAf 88 (>60 ml/min/1.73 sqM) Glucose 133 H (74-99) mg/dL POC Glucose (mg/dL) (70-110) mg/dL POC Glu Interim Controller ID Calcium 8.0 L (8.4-10.2) mg/dL Total Bilirubin 1.0 (0.2-1.3) mg/dL AST 94 H (14-36) U/L ALT 79 H (4-34) U/L Alkaline Phosphatase 180 H (38-126) U/L Ammonia <9 (<30) umol/L Troponin I (0.000-0.034) ng/mL Total Protein 6.7 (6.3-8.2) g/dL Albumin 3.6 (3.5-5.0) g/dL Urine Opiates Screen (NotDetected) Ur Oxycodone Screen (NotDetected) Urine Methadone Screen (NotDetected) Ur Barbiturates Screen (NotDetected) U Tricyclic Antidepress (NotDetected) Ur Phencyclidine Scrn (NotDetected) Ur Amphetamines Screen (NotDetected) U Methamphetamines Scrn (NotDetected) U Benzodiazepines Scrn (NotDetected) Urine Cocaine Screen (NotDetected) U Marijuana (THC) Screen (NotDetected) Influenza Type A (PCR) (Not Detectd) Influenza Type B (PCR) (Not Detectd) RSV (PCR) (Not Detectd) SARS-CoV-2 (PCR) (Not Detectd) 06/27/24 06/27/24 Range/Units 16:38 17:55 WBC (3.8-10.6) k/uL RBC (3.80-5.40) m/uL Hgb (11.4-16.0) gm/dL Hct (34.0-46.0) % MCV (80.0-100.0) fL MCH (25.0-35.0) pg MCHC (31.0-37.0) g/dL RDW (11.5-15.5) % Plt Count (150-450) k/uL MPV Neutrophils % % Lymphocytes % % Monocytes % % Eosinophils % % Basophils % % Neutrophils # (1.3-7.7) k/uL Lymphocytes # (1.0-4.8) k/uL Monocytes # (0-1.0) k/uL Eosinophils # (0-0.7) k/uL Basophils # (0-0.2) k/uL PT (10.0-12.5) sec INR (<1.2) APTT (22.0-30.0) sec Sodium (137-145) mmol/L Potassium (3.5-5.1) mmol/L Chloride (98-107) mmol/L Carbon Dioxide (22-30) mmol/L Anion Gap mmol/L BUN (7-17) mg/dL Creatinine (0.52-1.04) mg/dL Est GFR (CKD-EPI)AfAm (>60 ml/min/1.73 sqM) Est GFR (CKD-EPI)NonAf (>60 ml/min/1.73 sqM) Glucose (74-99) mg/dL POC Glucose (mg/dL) (70-110) mg/dL POC Glu Interim Controller ID Calcium (8.4-10.2) mg/dL Total Bilirubin (0.2-1.3) mg/dL AST (14-36) U/L ALT (4-34) U/L Alkaline Phosphatase (38-126) U/L Ammonia (<30) umol/L Troponin I <0.012 (0.000-0.034) ng/mL Total Protein (6.3-8.2) g/dL Albumin (3.5-5.0) g/dL Urine Opiates Screen Not Detected (NotDetected) Ur Oxycodone Screen Not Detected (NotDetected) Urine Methadone Screen Not Detected (NotDetected) Ur Barbiturates Screen Not Detected (NotDetected) U Tricyclic Antidepress Not Detected (NotDetected) Ur Phencyclidine Scrn Not Detected (NotDetected) Ur Amphetamines Screen Not Detected (NotDetected) U Methamphetamines Scrn Not Detected (NotDetected) U Benzodiazepines Scrn Not Detected (NotDetected) Urine Cocaine Screen Not Detected (NotDetected) U Marijuana (THC) Screen Not Detected (NotDetected) Influenza Type A (PCR) (Not Detectd) Influenza Type B (PCR) (Not Detectd) RSV (PCR) (Not Detectd) SARS-CoV-2 (PCR) (Not Detectd) Disposition Clinical Impression: Altered mental status, Transaminitis, Accidental overdose Disposition: ADMITTED IP TO THIS [facility] Condition: Serious Referrals: Paddy Alanis MD [Primary Care Provider] - 1-2 days
[2024-06-27] MEDS: SODIUM CHLORIDE 0.9% 500 ML 500 ML IV ONE (15:08)
[2024-06-27 15:57] LABS: Glucose,Whole Blood 124 mg/dL (70-110)
[2024-06-27] MEDS: ACETAMINOPHEN IV (For NPO) 1,000 MG in EMPTY BAG 1 BAG IVPB STA (16:01)
[2024-06-27 16:48] LABS: Basophils % (A) 0 %; Eosinophils # (A) 0.1 k/uL (0-0.7); Eosinophils % (A) 0 %; HCT 38.4 % (34.0-46.0); HGB 12.2 gm/dL (11.4-16.0); Lymphocytes # (A) 0.5 k/uL (1.0-4.8); Lymphocytes % (A) 4 %; MCH 28.2 pg (25.0-35.0); MCHC 31.8 g/dL (31.0-37.0); MCV 88.6 fL (80.0-100.0); Mean Platelet Volume 7.7; Monocytes # (A) 0.2 k/uL (0-1.0); Monocytes % (A) 2 %; Neutrophils # (A) 10.7 k/uL (1.3-7.7); Neutrophils % (A) 93 %; Platelet Count 304 k/uL (150-450); RBC 4.34 m/uL (3.80-5.40); RDW 13.9 % (11.5-15.5); WBC 11.6 k/uL (3.8-10.6)
[2024-06-27 16:54] LABS: ALT 79 U/L (4-34); African American GFR (CKD) >90 (>60 ml/min/1.73 sqM); Albumin 3.6 g/dL (3.5-5.0); Anion Gap 9 mmol/L; Blood Urea Nitrogen 13 mg/dL (7-17); Carbon Dioxide 24 mmol/L (22-30); Chloride 102 mmol/L (98-107); Glucose 133 mg/dL (74-99); Non-African American GFR(CKD) 88 (>60 ml/min/1.73 sqM); Sodium 135 mmol/L (137-145); Total Protein 6.7 g/dL (6.3-8.2)
[2024-06-27 16:55] LABS: INR 1.1 (<1.2); Partial Thromboplastin Time 24.9 sec (22.0-30.0); Prothrombin Time 11.4 sec (10.0-12.5)
[2024-06-27 16:56] LABS: AST 94 U/L (14-36); Alkaline Phosphatase 180 U/L (38-126); Potassium 4.1 mmol/L (3.5-5.1)
--- NOTE | 2024-06-27 17:03 | XR ---
EXAMINATION TYPE: XR chest 2V DATE OF EXAM: 06/27/2024 4:57 PM COMPARISON: Previous chest radiograph 06/20/2024 CLINICAL INDICATION: Female, 79 years old with history of altered mental status; [facility] TECHNIQUE: XR chest 2V Frontal and lateral views of the chest. FINDINGS: Lungs/Pleura: There is no evidence of pleural effusion, focal consolidation, or pneumothorax. Pulmonary vascularity: Unremarkable. Heart/mediastinum: Cardiomediastinal silhouette is unremarkable. Musculoskeletal: No acute osseous pathology. Other findings: None IMPRESSION: No acute cardiopulmonary disease/process. [facility], , 06/27/2024 5:01 PM
--- NOTE | 2024-06-27 17:59 | CT ---
EXAMINATION TYPE: CT brain wo con DATE OF EXAM: 06/27/2024 5:43 PM COMPARISON: Multiple prior CT studies, most recently dated 06/20/2024. CLINICAL INDICATION: Female, 79 years old with history of altered, ams TECHNIQUE: Brain: Axial CT images of the brain were obtained with coronal and sagittal reformats created and rev iewed. Contrast used: None. Oral contrast used: None. CT DLP: 1205.4 mGycm, Automated exposure control for dose reduction was used. FINDINGS: Brain: Extra-axial spaces: No abnormal extra-axial fluid collections. Ventricular system: Mildly prominent compatible with generalized volume loss. Cerebral parenchyma: No acute intraparenchymal hemorrhage or mass effect. Scattered hypoattenuating areas are seen within the white matter. Cerebellum: Unremarkable. Mass effect: No evidence of midline shift. Intracranial vasculature: unremarkable Soft tissues: Normal. Calvarium/osseous structures: No depressed skull fracture. Paranasal sinuses and mastoid air cells: Mild scattered paranasal sinus disease. Visualized orbits: Bilateral aphakia IMPRESSION: 1. No acute intracranial process. 2. Nonspecific white matter changes, likely secondary to chronic small vessel ischemic disease. [facility], , 06/27/2024 5:57 PM
[2024-06-27 18:17] LABS: Amorphous Sediment,Urine Occasional /hpf; Appearance,Urine Cloudy (Clear); Bilirubin,Urine Negative (Negative); Blood,Urine Trace (Negative); Color,Urine Light Yellow; Glucose,Urine (UA) Trace (Negative); Ketones,Urine 3+ (Negative); Leukocyte Esterase,Urine Trace (Negative); Nitrite,Urine Negative (Negative); Protein,Urine Trace (Negative); RBC,Urine 2 /hpf (0-5); Specific Gravity,Urine 1.021 (1.001-1.035); Squamous Epithelial Cell,Urine <1 /hpf (0-4); Urobilinogen,Urine <2.0 mg/dL (<2.0); WBC,Urine 4 /hpf (0-5)
[2024-06-27 18:18] LABS: Amphetamine Screen,Urine Not Detected (NotDetected); Barbiturate Screen,Urine Not Detected (NotDetected); Benzodiazepines Screen,Urine Not Detected (NotDetected); Cocaine Screen,Urine Not Detected (NotDetected); Methadone Screen, Urine Not Detected (NotDetected); Opiate Screen,Urine Not Detected (NotDetected); Oxycodone Screen, Urine Not Detected (NotDetected); Phencyclidine Screen,Urine Not Detected (NotDetected); Tricyclic Antidepressant,Urine Not Detected (NotDetected); Urn Cannabinoid Scrn Not Detected (NotDetected)
[2024-06-27] MEDS ORDERED: NALOXONE 0.4 MG/ML 1 ML VIAL IV PRN (18:34)
--- NOTE | 2024-06-27 19:12 | US ---
EXAMINATION TYPE: US abdomen limited DATE OF EXAM: 06/27/2024 COMPARISON: NONE CLINICAL INDICATION: Female, 79 years old with history of transaminitis; overdose, cholecystectomy, n o abd pain, elevated liver labs TECHNIQUE: Grayscale and color Doppler imaging of the right upper quadrant was performed. FINDINGS: EXAM MEASUREMENTS: Liver Length: 14.0 cm Gallbladder Wall: Surgically absent CBD: 0.6 cm Right Kidney: 8.1 x 4.2 x 4.7 cm CESSATION SYSTEMS OUTREACH SPECIALIST NOTES:bowel gas limits exam Pancreas: Visualized portions unremarkable. Liver: difficult to penetrate Gallbladder: Surgically absent Evidence for sonographic Ballesteros's sign: no CBD: wnl Right Kidney: small in size IMPRESSION: No sonographic evidence of an acute abnormality in the right upper quadrant. [facility], , 06/27/2024 7:09 PM
[2024-06-28] MEDS: METOPROLOL SUCCINATE (ER) 25 MG TAB.ER.24H PO SCH (11:33)
--- NOTE | 2024-06-28 11:57 | P.CRDCN ---
History of Present Illness History of present illness: HISTORY OF PRESENTING ILLNESS This is a pleasant 79-year-old with past medical history significant for atrial fibrillation, hypertension, hyperlipidemia, reported [place], dementia, breast surgery/bilateral mastectomy. Patient confused and cannot tell any reason why she is at the hospital. Per history, report patient lives with a son who has cognitive delay and also there is a granddaughter who helps take care of patient. Patient's granddaughter is a nurse practitioner. She had a final p atch which was placed secondary to back pain. Initially one patch was placed however granddaughter found patient with 3 patches and suspicion that she placed the patches resolve. Patient was slurring her speech and altered and therefore EMS was called and patient was given Narcan with some improvement in status and started throwing up. She then was noted to have withdrawal symptoms. Patient found to be in A. fib with mild RVR with heart rates in the 101 10 range. She currently denies any chest pain or pressure. Denies any lightheadedness. REVIEW OF SYSTEMS At the time of my exam: CONSTITUTIONAL: Denies fever or chills. CARDIOVASCULAR: Denies chest pain, shortness of breath, orthopnea, PND or palpitations. RESPIRATORY: Denies cough. GASTROINTESTINAL: Denies abdominal pain, diarrhea, constipation, nausea or vomiting. MUSCULOSKELETAL: Denies myalgias. NEUROLOGIC: Denies numbness, tingling or weakness. ENDOCRINE: Denies fatigue, weight change, polydipsia or polyurina. GENITOURINARY: Denies burning, hematuria or urgency with micturation. HEMATOLOGIC: Denies history of anemia or bleeding. PHYSICAL EXAMINATION Vital signs reviewed. CONSTITUTIONAL: No apparent distress. HEENT: Head is normocephalic. Pupils are equal, round. Sclerae anicteric. Mucous membranes of the mouth are moist. No JVD. No carotid bruit. CHEST EXAMINATION: Lungs are clear to auscultation. No chest wall tenderness is noted on palpation or with deep breathing. HEART EXAMINATION: Irregular rate and rhythm. S1, S2 heard. No murmurs, gallops or rub. ABDOMEN: Soft, nontender. Positive bowel sounds. EXTREMITIES: 2+ peripheral pulses, no lower extremity edema and no calf tenderness. NEUROLOGIC EXAMINATION: Patient is awake, alert and oriented x3. ASSESSMENT Altered mental status, main source appears related to increased on all patches Questionable dementia Persistent atrial fibrillation with RVR Hypertension Questionable history of [place] PLAN Attempt to obtain records from PCP, family/ office regarding prior cardiac workup. Continue with anticoagulation. Majority of presentation concerning for fentanyl overdose from fentanyl patches. Add Toprol 25 mg daily for better heart rate control. Further recommendations to follow. Past Medical History Past Medical History: Atrial Fibrillation, Asthma, GERD/Reflux, Hyperlipidemia, Hypertension, Myocardial Infarction ([place]) History of Any Multi-Drug Resistant Organisms: None Reported Past Surgical History: Breast Surgery, Cholecystectomy, Hysterectomy, Joint Replacement, Tonsillectomy Additional Past Surgical History / Comment(s): bilateral mastectomy Past Psychological History: Anxiety, Depression Smoking Status: Never smoker Past Alcohol Use History: None Reported Past Drug Use History: None Reported Medications and Allergies Home Medications Medication Instructions Recorded Confirmed Type Albuterol Nebulized [Ventolin 2.5 mg INHALATION RT-TID PRN 04/04/22 06/28/24 His tory Nebulized] Albuterol Sulfate [Albuterol 2 puff INHALATION RT-Q4H PRN 04/04/22 06/28/24 H istory Sulfate Hfa] Aspirin EC [Ecotrin Low Dose] 81 mg PO DAILY 04/04/22 06/28/24 History Milnacipran HCl [Savella] 12.5 mg PO BID 04/04/22 06/28/24 History Pantoprazole Sodium [Protonix] 40 mg PO DAILY 04/04/22 06/28/24 History amLODIPine [Norvasc] 5 mg PO DAILY #7 tab 04/04/22 06/28/24 Rx fentaNYL 100MCG/HR PATCH 1 patch TRANSDERM Q72H 04/04/22 06/28/24 History [Duragesic 100MCG/HR] tiZANidine [Zanaflex] 4 mg PO TID PRN 04/04/22 06/28/24 History Apixaban [Eliquis] 5 mg PO BID 06/20/24 06/28/24 History Atorvastatin [Lipitor] 80 mg PO DAILY 06/20/24 06/28/24 History Sertraline [Zoloft] 25 mg PO DAILY 06/20/24 06/28/24 History traZODone HCL [Desyrel] 25 mg PO HS 06/28/24 06/28/24 History Allergies Allergy/AdvReac Type Severity Reaction Status Date / Time gabapentin Allergy Unknown - Verified 06/28/24 11:39 Per PCP meloxicam [From [facility]] Allergy Unknown - Verified 06/28/24 11:39 Per PCP Penicillins Allergy Unknown - Verified 06/28/24 11:39 Per PCP warfarin Allergy Unknown Verified 06/28/24 11:39 Physical Exam Vitals: Vital Signs Temp Pulse Resp BP Pulse Ox 06/28/24 11:31 107 H 06/28/24 09:05 100 14 158/94 94 L 06/28/24 07:39 80 14 06/28/24 03:00 92 14 142/69 95 06/28/24 01:00 112 H 18 106/93 96 06/27/24 23:42 99.2 F 116 H 18 151/69 95 06/27/24 20:00 121 H 18 128/82 95 06/27/24 19:00 107 H 18 120/79 95 06/27/24 17:51 99 F 107 H 18 120/79 96 06/27/24 14:24 100.2 F H 121 H 18 176/94 95 Results 06/27/24 16:33 06/27/24 16:38 Cardiac Enzymes 06/27/24 06/27/24 Range/Units 16:38 16:38 AST 94 H (14-36) U/L Troponin I <0.012 (0.000-0.034) ng/mL Coagulation 06/27/24 Range/Units 16:38 PT 11.4 (10.0-12.5) sec APTT 24.9 (22.0-30.0) sec CBC 06/27/24 Range/Units 16:33 WBC 11.6 H (3.8-10.6) k/uL RBC 4.34 (3.80-5.40) m/uL Hgb 12.2 (11.4-16.0) gm/dL Hct 38.4 (34.0-46.0) % Plt Count 304 (150-450) k/uL Comprehensive Metabolic Panel 06/27/24 Range/Units 16:38 Sodium 135 L (137-145) mmol/L Potassium 4.1 (3.5-5.1) mmol/L Chloride 102 (98-107) mmol/L Carbon Dioxide 24 (22-30) mmol/L BUN 13 (7-17) mg/dL Creatinine 0.55 (0.52-1.04) mg/dL Glucose 133 H (74-99) mg/dL Calcium 8.0 L (8.4-10.2) mg/dL AST 94 H (14-36) U/L ALT 79 H (4-34) U/L Alkaline Phosphatase 180 H (38-126) U/L Total Protein 6.7 (6.3-8.2) g/dL Albumin 3.6 (3.5-5.0) g/dL Current Medications Generic Name Dose Route Start Last Admin Trade Name Freq PRN Reason Stop Dose Admin Metoprolol Succinate 25 mg 06/28/24 11:30 06/28/24 11:33 Metoprolol Succinate (Er) 25 Mg Tab.Er.24h PO 25 mg DAILY JASON Administration Naloxone HCl 0.2 mg 06/27/24 18:34 Naloxone 0.4 Mg/Ml 1 Ml Vial IV Q2M PRN Opioid Reversal 06/27/24 16:33 06/27/24 16:38
[2024-06-28] MEDS ORDERED: ALBUTEROL NEBULIZED 2.5 MG/3 ML INHALATION PRN (12:28)
[2024-06-28] MEDS ORDERED: ALBUTEROL HFA INHALER INHALATION PRN (12:28)
--- NOTE | 2024-06-28 12:35 | P.HPIM ---
History of Present Illness 79-year-old female admitted for altered mental status. Apparently patient had 3 patches of 100 mcg of fentanyl.. As per the nursing staff patient lives by herself with family visiting her often. The patient is alert oriented x 2 at this time apparently she has waxing and waning mental status patient is not sure whether she lives by herself or with family although she knows where she is. Patient has these lucid and nonlucid phases occasionally at home predominantly at nighttime. REVIEW OF SYSTEMS: All other systems are negative except those mentioned in the HPI PHYSICAL EXAMINATION: GENERAL: The patient is alert and oriented x2, not in any acute distress. Well developed, well nourished. HEENT: Pupils are round and equally reacting to light. EOMI. No scleral icterus. No conjunctival pallor. Normocephalic, atraumatic. No pharyngeal erythema. No thyromegaly. CARDIOVASCULAR: S1 and S2 present. No murmurs, rubs, or gallops. PULMONARY: Chest is clear to auscultation, no wheezing or crackles. ABDOMEN: Soft, nontender, nondistended, normoactive bowel sounds. No palpable organomegaly. MUSCULOSKELETAL: No joint swelling or deformity. EXTREMITIES: No cyanosis, clubbing, or pedal edema. NEUROLOGICAL: Gross neurological examination did not reveal any focal deficits. SKIN: No rashes. Assessment and plan -altered mental status toxic encephalopathy secondary to excessive opiates or fentanyl patches. Patient may have baseline dementia which is vascular dementia -Possible vascular dementia patient is expected to have sundowners will use as needed Seroquel at nighttime -Generalized weakness physical therapy Occupational Therapy evaluation -Chronic atrial fibrillation presently rate controlled resume on anticoagulation and rate control medications -Hyperlipidemia -Hypertension -Gastroesophageal reflux disease For above-mentioned chronic medical problems patient will be resumed on appropriate home medications DVT prophylaxis: Patient is on Eliquis Past Medical History Past Medical History: Atrial Fibrillation, Asthma, GERD/Reflux, Hyperlipidemia, Hypertension, Myocardial Infarction ([place]) History of Any Multi-Drug Resistant Organisms: None Reported Past Surgical History: Breast Surgery, Cholecystectomy, Hysterectomy, Joint Replacement, Tonsillectomy Additional Past Surgical History / Comment(s): bilateral mastectomy Past Psychological History: Anxiety, Depression Smoking Status: Never smoker Past Alcohol Use History: None Reported Past Drug Use History: None Reported Medications and Allergies Home Medications Medication Instructions Recorded Confirmed Type Albuterol Nebulized [Ventolin 2.5 mg INHALATION RT-TID PRN 04/04/22 06/28/24 History Nebulized] Albuterol Sulfate [Albuterol 2 puff INHALATION RT-Q4H PRN 04/04/22 06/28/24 History Sulfate Hfa] Aspirin EC [Ecotrin Low Dose] 81 mg PO DAILY 04/04/22 06/28/24 History Milnacipran HCl [Savella] 12.5 mg PO BID 04/04/22 06/28/24 History Pantoprazole Sodium [Protonix] 40 mg PO DAILY 04/04/22 06/28/24 History amLODIPine [Norvasc] 5 mg PO DAILY #7 tab 04/04/22 06/28/24 Rx fentaNYL 100MCG/HR PATCH 1 patch TRANSDERM Q72H 04/04/22 06/28/24 History [Duragesic 100MCG/HR] tiZANidine [Zanaflex] 4 mg PO TID PRN 04/04/22 06/28/24 History Apixaban [Eliquis] 5 mg PO BID 06/20/24 06/28/24 History Atorvastatin [Lipitor] 80 mg PO DAILY 06/20/24 06/28/24 History Sertraline [Zoloft] 25 mg PO DAILY 06/20/24 06/28/24 History traZODone HCL [Desyrel] 25 mg PO HS 06/28/24 06/28/24 History Allergies Allergy/AdvReac Type Severity Reaction Status Date / Time gabapentin Allergy Unknown - Verified 06/28/24 11:39 Per PCP meloxicam [From Mobic] Allergy Unknown - Verified 06/28/24 11:39 Per PCP Penicillins Allergy Unknown - Verified 06/28/24 11:39 Per PCP warfarin Allergy Unknown Verified 06/28/24 11:39 Physical Exam Vitals: Vital Signs Temp Pulse Resp BP Pulse Ox 06/28/24 11:31 107 H 06/28/24 09:05 100 14 158/94 94 L 06/28/24 07:39 80 14 06/28/24 03:00 92 14 142/69 95 06/28/24 01:00 112 H 18 106/93 96 06/27/24 23:42 99.2 F 116 H 18 151/69 95 06/27/24 20:00 121 H 18 128/82 95 06/27/24 19:00 107 H 18 120/79 95 06/27/24 17:51 99 F 107 H 18 120/79 96 06/27/24 14:24 100.2 F H 121 H 18 176/94 95 Results CBC & Chem 7: 06/27/24 16:33 06/27/24 16:38 Labs: Abnormal Lab Results - Last 24 Hours (Table) 06/27/24 06/27/24 06/27/24 Range/Units 15:55 16:33 16:38 WBC 11.6 H (3.8-10.6) k/uL Neutrophils # 10.7 H (1.3-7.7) k/uL Lymphocytes # 0.5 L (1.0-4.8) k/uL Sodium 135 L (137-145) mmol/L Glucose 133 H (74-99) mg/dL POC Glucose (mg/dL) 124 H (70-110) mg/dL Calcium 8.0 L (8.4-10.2) mg/dL AST 94 H (14-36) U/L ALT 79 H (4-34) U/L Alkaline Phosphatase 180 H (38-126) U/L Urine Appearance (Clear) Urine Protein (Negative) Urine Glucose (UA) (Negative) Urine Ketones (Negative) Urine Blood (Negative) Ur Leukocyte Esterase (Negative) Amorphous Sediment (None) /hpf 06/27/24 Range/Units 17:55 WBC (3.8-10.6) k/uL Neutrophils # (1.3-7.7) k/uL Lymphocytes # (1.0-4.8) k/uL Sodium (137-145) mmol/L Glucose (74-99) mg/dL POC Glucose (mg/dL) (70-110) mg/dL Calcium (8.4-10.2) mg/dL AST (14-36) U/L ALT (4-34) U/L Alkaline Phosphatase (38-126) U/L Urine Appearance Cloudy H (Clear) Urine Protein Trace H (Negative) Urine Glucose (UA) Trace H (Negative) Urine Ketones 3+ H (Negative) Urine Blood Trace H (Negative) Ur Leukocyte Esterase Trace H (Negative) Amorphous Sediment Occasional H (None) /hpf
[2024-06-28] MEDS: amLODIPine 5 MG TAB PO SCH (12:43)
[2024-06-28] MEDS: SERTRALINE 25 MG TAB PO SCH (12:44)
[2024-06-28] MEDS: APIXABAN 5 MG TAB PO SCH (12:44)
[2024-06-28] MEDS: PANTOPRAZOLE 40 MG TABLET PO SCH (12:44)
[2024-06-28] MEDS: QUEtiapine 25 MG TAB PO STA (18:25)
[2024-06-28] MEDS: METOPROLOL SUCCINATE (ER) 25 MG TAB.ER.24H PO STA (18:25)
[2024-06-28] MEDS: HALOPERIDOL LACTATE 5 MG/ML 1 ML VIAL IM STA (20:28)
[2024-06-28] MEDS: LORazepam 2 MG/ML INJ IV STA (20:29)
[2024-06-28] MEDS: DILTIAZEM DRIP BOLUS FROM BAG 1 MG SOLN IV ONE (20:33)
[2024-06-28] MEDS: DILTIAZEM 125 MG in SODIUM CHLORIDE 0.9% 100 ML IV SCH (20:34)
[2024-06-29] MEDS: ASPIRIN 81 MG PO SCH (08:20)
[2024-06-29] MEDS: ATORVASTATIN 80 MG TAB PO SCH (08:21)
[2024-06-29] MEDS: METOPROLOL SUCCINATE (ER) 25 MG TAB.ER.24H PO STA (09:15)
--- NOTE | 2024-06-29 10:55 | P.PN ---
Subjective Progress Note Date: 06/29/24 HISTORY OF PRESENTING ILLNESS This is a pleasant 79-year-old with past medical history significant for atrial fibrillation, hypertension, hyperlipidemia, reported [place], dementia, breast surgery/bilateral mastectomy. Patient confused and cannot tell any reason why she is at the hospital. Per history, report patient lives with a son who has cognitive delay and also there is a granddaughter who helps take care of patient. Patient's granddaughter is a nurse practitioner. She had a final patch which was placed secondary to back pain. Initially one patch was placed however granddaughter found patient with 3 patches and suspicion that she placed the patches resolve. Patient was slurring her speech and altered and therefore EMS was called and patient was given Narcan with some improvement in status and started throwing up. She then was noted to have withdrawal symptoms. Patient found to be in A. fib with mild RVR with heart rates in the 101 10 range. She currently denies any chest pain or pressure. Denies any lightheadedness. 06/29/2024 Patient seen and examined. Patient is now on the cardiac stepdown unit. Heart rates are running between 90 and 106, blood pressure 142/60, pulse ox 92% on room air. Patient remains in atrial fibrillation. No repeat blood work. PHYSICAL EXAMINATION Vital signs reviewed. CONSTITUTIONAL: No apparent distress. HEENT: Head is normocephalic. Pupils are equal, round. Sclerae anicteric. Mucous membranes of the mouth are moist. No JVD. No carotid bruit. CHEST EXAMINATION: Lungs are clear to auscultation. No chest wall tenderness is noted on palpation or with deep breathing. HEART EXAMINATION: Irregular rate and rhythm. S1, S2 heard. No murmurs, gallops or rub. ABDOMEN: Soft, nontender. Positive bowel sounds. EXTREMITIES: 2+ peripheral pulses, no lower extremity edema and no calf tenderness. NEUROLOGIC EXAMINATION: Patient is awake, alert and oriented to person and place. ASSESSMENT Altered mental status, main source appears related to increased on Durogesic patches Questionable dementia Persistent atrial fibrillation with RVR, now rate controlled Hypertension Questionable history of [place] PLAN Attempt to obtain records from PCP, family/ office regarding prior cardiac workup. Continue with anticoagulation, Eliquis 5 mg twice daily Continue other cardiac medications: Aspirin, atorvastatin Increase metoprolol succinate to 50 mg daily, additional 25 to be given now Majority of presentation concerning for fentanyl overdose from fentanyl patches. Further recommendations to follow. Nurse practitioner note has been reviewed, I agree with documented findings and plan of care. Patient was seen and examined. Objective - Vital Signs Vital signs: Vital Signs Temp 98.4 F 06/29/24 08:00 Pulse 122 H 06/29/24 08:00 Resp 18 06/29/24 08:00 BP 142/60 06/29/24 08:00 Pulse Ox 92 L 06/29/24 08:00 FiO2 Intake & Output 06/28/24 06/29/24 06/29/24 18:59 06:59 18:59 Intake Total 24.667 Balance 24.667 Weight 50 kg Intake: IV 10 Invasive Line 1 10 Intake, IV Titration 14.667 Amount Diltiazem 125 mg In 14.667 Sodium Chloride 0.9% 100 ml @ 5 MG/HR 5 mls/hr IV .Q24H [facility] Rx#:[id number] Other: Voiding Method Diaper # Voids 2 - Labs CBC & Chem 7: 06/27/24 16:33 06/27/24 16:38
[2024-06-29] MEDS ORDERED: tiZANidine 4 MG TAB PO PRN (13:41)
[2024-06-29] MEDS ORDERED: HYDROcodone/APAP 7.5-325MG 1 EACH TAB PO PRN (13:42)
--- NOTE | 2024-06-29 13:52 | P.PN ---
Subjective Progress Note Date: 06/29/24 79-year-old female admitted for altered mental status. Apparently patient had 3 patches of 100 mcg of fentanyl.. As per the nursing staff patient lives by herself with family visiting her often. The patient is alert oriented x 2 at this time apparently she has waxing and waning mental status patient is not sure whether she lives by herself or with family although she knows where she is. Patient has these lucid and nonlucid phases occasionally at home predominantly at nighttime. 06/29/2024 Patient evaluated in follow-up today in the medical floor. Recommend to maintain off of fentanyl he is now more awake alert and oriented. Patient did have significant confusion and agitation overnight requiring restraints and use of Haldol. Her granddaughter is at the bedside. Patient is currently pending subacute rehabilitation before discharging home. She does require 3 nights of inpatient hospital stay and she has been flipped to inpatient today. Discussed with family at the bedside to attempt to stay off of the fentanyl. She cannot take meloxicam we do not carry celebrex on formulary. Patient will be given norco for now. Monitor closely. She has been taken off the cardizem. Heart rate 116 today. Review of Systems Constitutional: Denied any fatigue denied any fever. Cardio vascular: denied any chest pain, palpitations Gastrointestinal: denied any nausea, vomiting, diarrhea Pulmonary: Denied any shortness of breath cough Neurologic denied any new focal deficits All inpatient medications were reviewed and appropriate changes in these medications as dictated in the interval history and assessment and plan. PHYSICAL EXAMINATION: GENERAL: The patient is alert and oriented x2, not in any acute distress. Well developed, well nourished. HEENT: Pupils are round and equally reacting to light. EOMI. No scleral icterus. No conjunctival pallor. Normocephalic, atraumatic. No pharyngeal erythema. No thyromegaly. CARDIOVASCULAR: S1 and S2 present. No murmurs, rubs, or gallops. PULMONARY: Chest is clear to auscultation, no wheezing or crackles. ABDOMEN: Soft, nontender, nondistended, normoactive bowel sounds. No palpable organomegaly. MUSCULOSKELETAL: No joint swelling or deformity. EXTREMITIES: No cyanosis, clubbing, or pedal edema. NEUROLOGICAL: Gross neurological examination did not reveal any focal deficits. SKIN: No rashes. Assessment and plan -Altered mental status toxic encephalopathy secondary to excessive opiates or fentanyl patches. Patient may have baseline dementia which is vascular dementia. Mentation has improved today. -Possible vascular dementia patient is expected to have sundowners will use as needed Seroquel at nighttime -Generalized weakness physical therapy Occupational Therapy evaluation -Chronic atrial fibrillation presently rate controlled resume on anticoagulation and rate control medications -Hyperlipidemia -Hypertension -Gastroesophageal reflux disease For above-mentioned chronic medical problems patient will be resumed on appr opriate home medications DVT prophylaxis: Patient is on Eliquis Patient requires 3 nights of inpatient hospital stay in order to discharge to rehab. Hold off on the fentanyl for now. Start oral norco. Repeat BMP. Cardiology following. The impression and plan of care has been dictated by Patty Crandall, Nurse Practitioner as directed. Dr. Stas MD I have performed a history and physical examination and medical decision making of this patient, discussed the same with the dictator, and agree with the dictators assessment and plan as written, documented as a scribe. Based on total visit time, I have performed more than 50% of this visit. Objective - Vital Signs Vital signs: Vital Signs Temp 98.4 F 06/29/24 08:00 Pulse 116 H 06/29/24 11:35 Resp 16 06/29/24 11:35 BP 129/72 06/29/24 11:35 Pulse Ox 94 L 06/29/24 11:35 FiO2 Intake & Output 06/28/24 06/29/24 06/29/24 18:59 06:59 18:59 Intake Total 24.667 360 Balance 24.667 360 Weight 50 kg Intake: IV 10 Invasive Line 1 10 Intake, IV Titration 14.667 Amount Diltiazem 125 mg In 14.667 Sodium Chloride 0.9% 100 ml @ 5 MG/HR 5 mls/hr IV .Q24H [facility] Rx#:[id number] Oral 360 Other: Voiding Method Diaper Toilet Diaper # Voids 2 3 - Labs CBC & Chem 7: 06/27/24 16:33 06/27/24 16:38 Assessment and Plan Time with Patient: Less than 30
[2024-06-29] MEDS: traZODone HCL 50 MG TAB PO SCH (20:19)
[2024-06-29] MEDS: QUEtiapine 25 MG TAB PO PRN (20:19)
[2024-06-30] MEDS: METOPROLOL SUCCINATE (ER) 50 MG TAB.ER.24H PO SCH (08:02)
[2024-06-30 09:50] LABS: ALT 39 U/L (4-34); AST 31 U/L (14-36); African American GFR (CKD) >90 (>60 ml/min/1.73 sqM); Albumin 3.3 g/dL (3.5-5.0); Alkaline Phosphatase 117 U/L (38-126); Anion Gap 6 mmol/L; Blood Urea Nitrogen 15 mg/dL (7-17); Calcium 8.5 mg/dL (8.4-10.2); Carbon Dioxide 28 mmol/L (22-30); Chloride 105 mmol/L (98-107); Glucose 111 mg/dL (74-99); Non-African American GFR(CKD) 80 (>60 ml/min/1.73 sqM); Potassium 3.1 mmol/L (3.5-5.1); Sodium 139 mmol/L (137-145); Total Bilirubin 0.7 mg/dL (0.2-1.3); Total Protein 5.9 g/dL (6.3-8.2)
[2024-06-30] MEDS ORDERED: Potassium Replacement Protocol 1 EACH MISC MISCELLANE PRN (10:21)
[2024-06-30] MEDS: POTASSIUM CHLORIDE ER 20 MEQ TAB.ER PO STA (10:30)
--- NOTE | 2024-06-30 14:26 | P.PN ---
Subjective Progress Note Date: 06/30/24 79-year-old female admitted for altered mental status. Apparently patient had 3 patches of 100 mcg of fentanyl.. As per the nursing staff patient lives by herself with family visiting her often. The patient is alert oriented x 2 at this time apparently she has waxing and waning mental status patient is not sure whether she lives by herself or with family although she knows where she is. Patient has these lucid and nonlucid phases occasionally at home predominantly at nighttime. 06/29/2024 Patient evaluated in follow-up today in the medical floor. Recommend to maintain off of fentanyl he is now more awake alert and oriented. Patient did have significant confusion and agitation overnight requiring restraints and use of Haldol. Her granddaughter is at the bedside. Patient is currently pending subacute rehabilitation before discharging home. She does require 3 nights of inpatient hospital stay and she has been flipped to inpatient today. Discussed with family at the bedside to attempt to stay off of the fentanyl. She cannot take meloxicam we do not carry celebrex on formulary. Patient will be given norco for now. Monitor closely. She has been taken off the cardizem. Heart rate 116 today. 06/30/2024 Patient evaluated in follow up today on medical floor. Continues on seroquel HS. Started on norco for pain management. Pending accepting SNF although patient did well with physical therapy. If denied will follow up with family that she will be returning home. Heart rate is better controlled today. Toprol XL has been increased to 50 mg daily. Review of Systems Constitutional: Denied any fatigue denied any fever. Cardio vascular: denied any chest pain, palpitations Gastrointestinal: denied any nausea, vomiting, diarrhea Pulmonary: Denied any shortness of breath cough Neurologic denied any new focal deficits All inpatient medications were reviewed and appropriate changes in these medications as dictated in the interval history and assessment and plan. PHYSICAL EXAMINATION: GENERAL: The patient is alert and oriented x2, not in any acute distress. Well developed, well nourished. HEENT: Pupils are round and equally reacting to light. EOMI. No scleral icterus. No conjunctival pallor. Normocephalic, atraumatic. No pharyngeal erythema. No thyromegaly. CARDIOVASCULAR: S1 and S2 present. No murmurs, rubs, or gallops. PULMONARY: Chest is clear to auscultation, no wheezing or crackles. ABDOMEN: Soft, nontender, nondistended, normoactive bowel sounds. No palpable organomegaly. MUSCULOSKELETAL: No joint swelling or deformity. EXTREMITIES: No cyanosis, clubbing, or pedal edema. NEUROLOGICAL: Gross neurological examination did not reveal any focal deficits. SKIN: No rashes. Assessment and plan -Altered mental status toxic encephalopathy secondary to excessive opiates or fentanyl patches. Patient may have baseline dementia which is vascular dementia. Mentation has improved today. -Possible vascular dementia patient is expected to have sundowners will use as needed Seroquel at nighttime -Generalized weakness physical therapy Occupational Therapy evaluation patient is pending accepting SNF and social work following. -Chronic atrial fibrillation presently rate controlled resume on anticoagulation and rate control medications, toprol XL increased and patient has improved heart rate control. -Hyperlipidemia -Hypertension -Gastroesophageal reflux disease For above-mentioned chronic medical problems patient will be resumed on appropriate home medications DVT prophylaxis: Patient is on Eliquis Patient requires 3 nights of inpatient hospital stay in order to discharge to rehab. Hold off on the fentanyl for now. Start oral norco. Repeat BMP. Car diology following. The impression and plan of care has been dictated by Nurse Jessica Prac titioner as directed. Dr. Stas MD I have performed a history and physical examination and medical decision making of this patient, discussed the same with the dictator, and agree with the dictators assessment and plan as written, documented as a scribe. Based on total visit time, I have performed more than 50% of this visit. Objective - Vital Signs Vital signs: Vital Signs Temp 98.3 F 06/30/24 11:42 Pulse 81 06/30/24 11:42 Resp 16 06/30/24 11:42 BP 115/68 06/30/24 11:42 Pulse Ox 95 06/30/24 11:42 FiO2 Intake & Output 06/29/24 06/30/24 06/30/24 18:59 06:59 18:59 Intake Total 600 10 246 Balance 600 10 246 Weight 50.2 kg Intake: IV 10 10 Invasive Line 2 10 Invasive Line 3 10 Oral 600 236 Other: Voiding Method Toilet Toilet Toilet Diaper # Voids 1 1 - Labs CBC & Chem 7: 06/27/24 16:33 06/30/24 09:23 Labs: Abnormal Lab Results - Last 24 Hours (Table) 06/30/24 Range/Units 09:23 Potassium 3.1 L (3.5-5.1) mmol/L Glucose 111 H (74-99) mg/dL ALT 39 H (4-34) U/L Total Protein 5.9 L (6.3-8.2) g/dL Albumin 3.3 L (3.5-5.0) g/dL Assessment and Plan Time with Patient: Less than 30
--- NOTE | 2024-06-30 15:12 | P.PN ---
Subjective Progress Note Date: 06/30/24 HISTORY OF PRESENTING ILLNESS This is a pleasant 79-year-old with past medical history significant for atrial fibrillation, hypertension, hyperlipidemia, reported [place], dementia, breast surgery/bilateral mastectomy. Patient confused and cannot tell any reason why she is at the hospital. Per history, report patient lives with a son who has cognitive delay and also there is a granddaughter who helps take care of patient. Patient's granddaughter is a nurse practitioner. She had a final patch which was placed secondary to back pain. Initially one patch was placed however granddaughter found patient with 3 patches and suspicion that she placed the patches resolve. Patient was slurring her speech and altered and therefore EMS was called and patient was given Narcan with some improvement in status and started throwing up. She then was noted to have withdrawal symptoms. Patient found to be in A. fib with mild RVR with heart rates in the 101 10 range. She currently denies any chest pain or pressure. Denies any lightheadedness. 06/29/2024 Patient seen and examined. Patient is now on the cardiac stepdown unit. Heart rates are running between 90 and 106, blood pressure 142/60, pulse ox 92% on room air. Patient remains in atrial fibrillation. No repeat blood work. 06/30/24 Patient is seen and examined. Her heart rate is in the 80s and she is in a sinus rhythm, patient has an accurate weight at 50, age at 79 and Eliquis will be adjusted. Echocardiogram is status taken. Yesterday we increased Toprol to 50 mg to improve heart rate. Plan is for ECF probably tomorrow. PHYSICAL EXAMINATION Vital signs reviewed. CONSTITUTIONAL: No apparent distress. HEENT: Head is normocephalic. Pupils are equal, round. Sclerae anicteric. Mucous membranes of the mouth are moist. No JVD. No carotid bruit. CHEST EXAMINATION: Lungs are clear to auscultation. No chest wall tenderness is noted on palpation or with deep breathing. HEART EXAMINATION: Irregular rate and rhythm. S1, S2 heard. No murmurs, gallops or rub. ABDOMEN: Soft, nontender. Positive bowel sounds. EXTREMITIES: 2+ peripheral pulses, no lower extremity edema and no calf tenderness. NEUROLOGIC EXAMINATION: Patient is awake, alert and oriented to person and place. ASSESSMENT Altered mental status, main source appears related to increased on Durogesic patches Questionable dementia Persistent atrial fibrillation with RVR, now rate controlled Hypertension Questionable history of [place] PLAN Continue with anticoagulation, Eliquis decreased dose to 2.5 mg twice daily Continue other cardiac medications: Aspirin, atorvastatin Continue metoprolol succinate 50 mg daily Further recommendations to follow. Nurse practitioner note has been reviewed, I agree with documented findings and plan of care. Patient was seen and examined. Objective - Vital Signs Vital signs: Vital Signs Temp 98.5 F 06/30/24 08:00 Pulse 83 06/30/24 08:00 Resp 16 06/30/24 08:00 BP 131/60 06/30/24 08:00 Pulse Ox 95 06/30/24 08:00 FiO2 Intake & Output 06/29/24 06/30/24 06/30/24 18:59 06:59 18:59 Intake Total 600 10 128 Balance 600 10 128 Weight 50.2 kg Intake: IV 10 10 Invasive Line 2 10 Invasive Line 3 10 Oral 600 118 Other: Voiding Method Toilet Toilet Toilet Diaper # Voids 1 1 - Labs CBC & Chem 7: 06/27/24 16:33 06/30/24 09:23 Labs: Abnormal Lab Results - Last 24 Hours (Table) 06/30/24 Range/Units 09:23 Potassium 3.1 L (3.5-5.1) mmol/L Glucose 111 H (74-99) mg/dL ALT 39 H (4-34) U/L Total Protein 5.9 L (6.3-8.2) g/dL Albumin 3.3 L (3.5-5.0) g/dL
[2024-06-30 20:07] LABS: Glucose,Whole Blood 153 mg/dL (70-110)
[2024-06-30] MEDS: APIXABAN 2.5 MG TABLET PO SCH (20:46)
[2024-07-01 06:05] LABS: Glucose,Whole Blood 102 mg/dL (70-110)
[2024-07-01] MEDS ORDERED: ACETAMINOPHEN TAB 325 MG TAB PO PRN (09:22)
--- NOTE | 2024-07-01 12:28 | CA ---
Transthoracic Echo Report Name: Rhonda Harris Age: 79 Gender: F : 1945 Exam Date: 06/30/2024 14:16 Exam Location: [facility] Ht (in): 62 Wt (lb): 110 Ordering Physician: Elva Palomino Attending/Referring Phys: [id number], Candelario Body Builder Cristine Milton, DARY Procedure CPT: Indications: LVF Cardiac Hx: Technical Quality: Fair, pt was uncooperative Contrast 1: Total Dose (mL): Contrast 2: Total Dose (mL): MEASUREMENTS (Male / Female) Normal Values 2D ECHO LV Diastolic Diameter PLAX 4.2 cm 4.2 - 5.9 / 3.9 - 5.3 cm LV Systolic Diameter PLAX 3.1 cm IVS Diastolic Thickness 1.1 cm 0.6 - 1.0 / 0.6 - 0.9 cm LVPW Diastolic Thickness 1.1 cm 0.6 - 1.0 / 0.6 - 0.9 cm LV Relative Wall Thickness 0.5 RV Internal Dim ED PLAX 2.0 cm LVOT Diameter 1.9 cm LA Systolic Diameter LX 3.9 cm 3.0 - 4.0 / 2.7 - 3.8 cm LV Diastolic Volume MOD BP 41.7 cm??? 67 - 155 / 56 - 104 cm??? LV Systolic Volume MOD BP 17.5 cm??? - / 19 - 49 cm??? LV Ejection Fraction MOD BP 58.0 % >= 55 % LV Cardiac Index MOD BP 1999.0 cm???/min???m??? LV Diastolic Volume MOD 4C 40.8 cm??? LV Systolic Volume MOD 4C 11.2 cm??? LV Ejection Fraction MOD 4C 72.6 % LV Cardiac Index MOD 4C 2445.9 cm???/min???m??? LV Diastolic Length 4C 6.1 cm LV Systolic Length 4C 2.8 cm LV Diastolic Volume MOD 2C 40.4 cm??? LV Systolic Volume MOD 2C 14.8 cm??? LV Ejection Fraction MOD 2C 63.3 % LV Cardiac Index MOD 2C 2112.1 cm???/min???m??? LV Diastolic Length 2C 6.4 cm LV Systolic Length 2C 5.3 cm LA Volume 69.2 cm??? 18 - 58 / 22 - 52 cm??? LA Volume Index 46.9 cm???/m??? 16 - 28 cm???/m??? M-MODE Aortic Root Diameter MM 1.9 cm LA Systolic Diameter MM 3.3 cm LA Ao Ratio MM 1.8 DOPPLER AV Peak Velocity 220.0 cm/s AV Peak Gradient 19.4 mmHg AV Mean Velocity 161.1 cm/s AV Mean Gradient 11.4 mmHg AV Velocity Time Integral 47.8 cm AI Peak Velocity 283.4 cm/s AI Peak Gradient 32.1 mmHg AI Pressure Half Time 591.9 ms LVOT Peak Velocity 109.5 cm/s LVOT Peak Gradient 4.8 mmHg LVOT Velocity Time Integral 26.6 cm LVOT Stroke Volume 71.8 cm??? LVOT Stroke Volume Index 48.4 ml/m??? LVOT Cardiac Index 5931.9 cm???/min???m??? AV Area Cont Eq vti 1.5 cm??? AV Area Cont Eq pk 1.3 cm??? MV Area PHT 3.2 cm??? Mitral E Point Velocity 136.8 cm/s Mitral A Point Velocity 46.4 cm/s Mitral E to A Ratio 2.9 MV Deceleration Time 238.1 ms TR Peak Velocity 254.2 cm/s TR Peak Gradient 25.9 mmHg Right Ventricular Systolic Press 30.5 mmHg FINDINGS Left Ventricle Left ventricular ejection fraction is estimated at 55-60%. Mildly increased septal wall thickness. Mildly increased posterior wall thickness. Normal left ventricular systolic function with no obvious regional wall motion abnormalities. Left ventricular cavity size normal. Right Ventricle Normal right ventricular size and function. Right ventricular systolic pressure within normal limits. Right Atrium Mild right atrial dilatation. Left Atrium Moderately increased left atrial volume. Mildly increased left atrial area. Mitral Valve Mitral valve thickened. Bhov-qk-kxexkufk mitral regurgitation. . Mild mitral annular calcification. Aortic Valve Aortic valve not well visualized. Mild aortic stenosis with a peak gradient of 19 mmHg and a mean gradient of 11 mmHg. Tricuspid Valve Structurally normal tricuspid valve. Moderate tricuspid regurgitation. No tricuspid stenosis. Pulmonic Valve Structurally normal pulmonic valve. Trace pulmonic regurgitation. No pulmonic stenosis. Pericardium No pericardial or pleural effusion. Aorta Normal size aortic root and proximal ascending aorta. CONCLUSIONS Left ventricular ejection fraction 55-60% Mild to moderately dilated left atrium Higc-ey-kdclnnvg mitral regurgitation Mild aortic stenosis Previewed by: Dr. Maxi Hernández DO (Electronically Signed) Final Date: 01 July 2024 12:26
--- NOTE | 2024-07-01 14:14 | P.PN ---
Subjective Progress Note Date: 07/01/24 HISTORY OF PRESENTING ILLNESS This is a pleasant 79-year-old with past medical history significant for atrial fibrillation, hypertension, hyperlipidemia, reported [place], dementia, breast surgery/bilateral mastectomy. Patient confused and cannot tell any reason why she is at the hospital. Per history, report patient lives with a son who has cognitive delay and also there is a granddaughter who helps take care of patient. Patient's granddaughter is a nurse practitioner. She had a final patch which was placed secondary to back pain. Initially one patch was placed however granddaughter found patient with 3 patches and suspicion that she placed the patches resolve. Patient was slurring her speech and altered and therefore EMS was called and patient was given Narcan with some improvement in status and started throwing up. She then was noted to have withdrawal symptoms. Patient found to be in A. fib with mild RVR with heart rates in the 101 10 range. She currently denies any chest pain or pressure. Denies any lightheadedness. 06/29/2024 Patient seen and examined. Patient is now on the cardiac stepdown unit. Heart rates are running between 90 and 106, blood pressure 142/60, pulse ox 92% on room air. Patient remains in atrial fibrillation. No repeat blood work. 06/30/24 Patient is seen and examined. Her heart rate is in the 80s and she is in a sinus rhythm, patient has an accurate weight at 50, age at 79 and Eliquis will be adjusted. Echocardiogram is status taken. Yesterday we increased Toprol to 50 mg to improve heart rate. Plan is for ECF probably tomorrow. 07/01/2024 Patient seen and examined. She states she is feeling better today. Blood pressure 147/88, heart rate 75, pulse ox 96% on room air. Telemetry is atrial fibrillation. Echocardiogram reveals EF of 55 to 60%, mild to moderate MR, mild aortic stenosis. PHYSICAL EXAMINATION Vital signs reviewed. CONSTITUTIONAL: No apparent distress. HEENT: Head is normocephalic. Pupils are equal, round. Sclerae anicteric. Mucous membranes of the mouth are moist. No JVD. No carotid bruit. CHEST EXAMINATION: Lungs are clear to auscultation. No chest wall tenderness is noted on palpation or with deep breathing. HEART EXAMINATION: Irregular rate and rhythm. S1, S2 heard. Systolic murmur. ABDOMEN: Soft, nontender. Positive bowel sounds. EXTREMITIES: 2+ peripheral pulses, no lower extremity edema and no calf ten derness. NEUROLOGIC EXAMINATION: Patient is awake, alert. ASSESSMENT Altered mental status, main source appears related to increased on Durogesic patches Questionable dementia Persistent atrial fibrillation with RVR, now rate controlled Hypertension Questionable history of [place] PLAN Continue patient on Toprol-XL 50 mg daily, aspirin 81 mg daily, Lipitor 80 mg daily Continue with anticoagulation, Eliquis decreased dose to 2.5 mg twice daily Patient is cleared for discharge from cardiology. Nurse practitioner note has been reviewed, I agree with documented findings and plan of care. Patient was seen and examined. Objective - Vital Signs Vital signs: Vital Signs Temp 97.7 F 07/01/24 12:00 Pulse 88 07/01/24 12:00 Resp 16 07/01/24 12:00 BP 107/70 07/01/24 12:00 Pulse Ox 94 L 07/01/24 12:00 FiO2 Intake & Output 06/30/24 07/01/24 07/01/24 18:59 06:59 18:59 Intake Total 904 220 Balance 904 220 Intake: IV 10 Invasive Line 3 10 Oral 894 220 Other: Voiding Method Toilet Toilet # Voids 3 1 0 # Bowel Movements 1 0 - Labs CBC & Chem 7: 06/27/24 16:33 06/30/24 09:23 Labs: Abnormal Lab Results - Last 24 Hours (Table) 06/30/24 Range/Units 20:06 POC Glucose (mg/dL) 153 H (70-110) mg/dL Microbiology - Last 24 Hours (Table) 06/29/24 14:20 Urine Culture - Final Urine,Voided
--- NOTE | 2024-07-01 17:30 | P.PN ---
Subjective Progress Note Date: 07/01/24 79-year-old female admitted for altered mental status. Apparently patient had 3 patches of 100 mcg of fentanyl.. As per the nursing staff patient lives by herself with family visiting her often. The patient is alert oriented x 2 at this time apparently she has waxing and waning mental status patient is not sure whether she lives by herself or with family although she knows where she is. Patient has these lucid and nonlucid phases occasionally at home predominantly at nighttime. 06/29/2024 Patient evaluated in follow-up today in the medical floor. Recommend to maintain off of fentanyl he is now more awake alert and oriented. Patient did have significant confusion and agitation overnight requiring restraints and use of Haldol. Her granddaughter is at the bedside. Patient is currently pending subacute rehabilitation before discharging home. She does require 3 nights of inpatient hospital stay and she has been flipped to inpatient today. Discussed with family at the bedside to attempt to stay off of the fentanyl. She cannot take meloxicam we do not carry celebrex on formulary. Patient will be given norco for now. Monitor closely. She has been taken off the cardizem. Heart rate 116 today. 06/30/2024 Patient evaluated in follow up today on medical floor. Continues on seroquel HS. Started on norco for pain management. Pending accepting SNF although patient did well with physical therapy. If denied will follow up with family that she will be returning home. Heart rate is better controlled today. Toprol XL has been increased to 50 mg daily. 07/01/2024 Patient evaluated in follow up on the medical floor. Patient was not approved for detention. She was cleared for DC home however heart rate elevated today and cardiology recommending to continue to monitor the patient for one more night. Echocardiogram shows normal LV function. Review of Systems Constitutional: Denied any fatigue denied any fever. Cardio vascular: denied any chest pain, palpitations Gastrointestinal: denied any nausea, vomiting, diarrhea Pulmonary: Denied any shortness of breath cough Neurologic denied any new focal deficits All inpatient medications were reviewed and appropriate changes in these medications as dictated in the interval history and assessment and plan. PHYSICAL EXAMINATION: GENERAL: The patient is alert and oriented x2, not in any acute distress. Well developed, well nourished. HEENT: Pupils are round and equally reacting to light. EOMI. No scleral icterus. No conjunctival pallor. Normocephalic, atraumatic. No pharyngeal erythema. No thyromegaly. CARDIOVASCULAR: S1 and S2 present. No murmurs, rubs, or gallops. PULMONARY: Chest is clear to auscultation, no wheezing or crackles. ABDOMEN: Soft, nontender, nondistended, normoactive bowel sounds. No palpable o rganomegaly. MUSCULOSKELETAL: No joint swelling or deformity. EXTREMITIES: No cyanosis, clubbing, or pedal edema. NEUROLOGICAL: Gross neurological examination did not reveal any focal deficits. SKIN: No rashes. Assessment and plan -Altered mental status toxic encephalopathy secondary to excessive opiates or fentanyl patches. Patient may have baseline dementia which is vascular dementia. Mentation has improved today. -Possible vascular dementia patient is expected to have sundowners will use as needed Seroquel at nighttime -Generalized weakness physical therapy Occupational Therapy evaluation recommending home with homecare and per family they are able to accomodate the patient. -Chronic atrial fibrillation presently rate controlled resume on anticoagulation and rate control medications, toprol XL increased. Now with RVR today and cardiology recommending to monitor for one more night. -Hyperlipidemia -Hypertension -Gastroesophageal reflux disease For above-mentioned chronic medical problems patient will be resumed on appropriate home medications DVT prophylaxis: Patient is on Eliquis Hold off on the fentanyl for now. Start oral norco. Repeat BMP. Cardiology following. Patient to continue cardiac telemetry overnight. If heart rate remains controlled patient will be discharged home tomorrow. The impression and plan of care has been dictated by Nurse Jarek Lopez ctitioner as directed. Dr. Stas MD I have performed a history and physical examination and medical decision making of this patient, discussed the same with the dictator, and agree with the dictat ors assessment and plan as written, documented as a scribe. Based on total visit time, I have performed more than 50% of this visit. Objective - Vital Signs Vital signs: Vital Signs Temp 98 F 07/01/24 15:00 Pulse 77 07/01/24 15:00 Resp 16 07/01/24 15:00 BP 129/77 07/01/24 15:00 Pulse Ox 96 07/01/24 15:00 FiO2 Intake & Output 06/30/24 07/01/24 07/01/24 18:59 06:59 18:59 Intake Total 904 220 Balance 904 220 Intake: IV 10 Invasive Line 3 10 Oral 894 220 Other: Voiding Method Toilet Toilet # Voids 3 1 0 # Bowel Movements 1 0 - Labs CBC & Chem 7: 06/27/24 16:33 06/30/24 09:23 Labs: Abnormal Lab Results - Last 24 Hours (Table) 06/30/24 Range/Units 20:06 POC Glucose (mg/dL) 153 H (70-110) mg/dL Microbiology - Last 24 Hours (Table) 06/29/24 14:20 Urine Culture - Final Urine,Voided Assessment and Plan Time with Patient: Less than 30
[2024-07-02 08:55] VITALS: RESP 18; TEMP 98.8
--- NOTE | 2024-07-02 09:03 | P.PN ---
Subjective Progress Note Date: 07/02/24 HISTORY OF PRESENTING ILLNESS This is a pleasant 79-year-old with past medical history significant for atrial fibrillation, hypertension, hyperlipidemia, reported [place], dementia, breast surgery/bilateral mastectomy. Patient confused and cannot tell any reason why she is at the hospital. Per history, report patient lives with a son who has cognitive delay and also there is a granddaughter who helps take care of patient. Patient's granddaughter is a nurse practitioner. She had a final patch which was placed secondary to back pain. Initially one patch was placed however granddaughter found patient with 3 patches and suspicion that she placed the patches resolve. Patient was slurring her speech and altered and therefore EMS was called and patient was given Narcan with some improvement in status and started throwing up. She then was noted to have withdrawal symptoms. Patient found to be in A. fib with mild RVR with heart rates in the 101 10 range. She currently denies any chest pain or pressure. Denies any lightheadedness. 06/29/2024 Patient seen and examined. Patient is now on the cardiac stepdown unit. Heart rates are running between 90 and 106, blood pressure 142/60, pulse ox 92% on room air. Patient remains in atrial fibrillation. No repeat blood work. 06/30/24 Patient is seen and examined. Her heart rate is in the 80s and she is in a sinus rhythm, patient has an accurate weight at 50, age at 79 and Eliquis will be adjusted. Echocardiogram is status taken. Yesterday we increased Toprol to 50 mg to improve heart rate. Plan is for ECF probably tomorrow. 07/01/2024 Patient seen and examined. She states she is feeling better today. Blood pressure 147/88, heart rate 75, pulse ox 96% on room air. Telemetry is atrial fibrillation. Echocardiogram reveals EF of 55 to 60%, mild to moderate MR, mild aortic stenosis. 07/02/2024 Patient is in atrial fibrillation rate is about 100. Blood pressure 114/65, pulse ox 95% on room air. Patient denies having any chest pain no shortness of breath no palpitations. She is scheduled for discharge today. PHYSICAL EXAMINATION Vital signs reviewed. CONSTITUTIONAL: No apparent distress. HEENT: Head is normocephalic. Pupils are equal, round. Sclerae anicteric. Mucous membranes of the mouth are moist. No JVD. No carotid bruit. CHEST EXAMINATION: Lungs are clear to auscultation. No chest wall tenderness is noted on palpation or with deep breathing. HEART EXAMINATION: Irregular rate and rhythm. S1, S2 heard. Systolic murmur. ABDOMEN: Soft, nontender. Positive bowel sounds. EXTREMITIES: 2+ peripheral pulses, no lower extremity edema and no calf tenderness. NEUROLOGIC EXAMINATION: Patient is awake, alert. ASSESSMENT Altered mental status, main source appears related to increased on Durogesic patches Questionable dementia Persistent atrial fibrillation with RVR, now rate controlled Hypertension Questionable history of [place] PLAN Continue patient on Toprol-XL and increase to 75 mg daily, aspirin 81 mg daily, Lipitor 80 mg daily Continue with anticoagulation, Eliquis decreased dose to 2.5 mg twice daily Patient is cleared for discharge from cardiology. Nurse practitioner note has been reviewed, I agree with documented findings and plan of care. Patient was seen and examined. Objective - Vital Signs Vital signs: Vital Signs Temp 98.8 F 07/02/24 08:54 Pulse 76 07/02/24 08:54 Resp 18 07/02/24 08:54 BP 114/65 07/02/24 08:54 Pulse Ox 95 07/02/24 08:54 FiO2 Intake & Output 07/01/24 07/02/24 07/02/24 18:59 06:59 18:59 Intake Total 940 Balance 940 Weight 73 kg Intake: Oral 940 Other: Voiding Method Toilet # Voids 3 2 # Bowel Movements 0 - Labs CBC & Chem 7: 06/27/24 16:33 06/30/24 09:23
[2024-07-02] MEDS: METOPROLOL SUCCINATE (ER) 25 MG TAB.ER.24H PO SCH (09:06)
[2024-07-02 09:35] LABS: African American GFR (CKD) >90 (>60 ml/min/1.73 sqM); Anion Gap 8 mmol/L; Blood Urea Nitrogen 12 mg/dL (7-17); Calcium 8.7 mg/dL (8.4-10.2); Carbon Dioxide 25 mmol/L (22-30); Chloride 105 mmol/L (98-107); Glucose 124 mg/dL (74-99); Non-African American GFR(CKD) 80 (>60 ml/min/1.73 sqM); Potassium 3.7 mmol/L (3.5-5.1); Sodium 138 mmol/L (137-145)
[2024-07-02 11:25] VITALS: BP 121/69; PULSE 88
--- NOTE | 2024-07-05 05:52 | P.DS ---
Providers Date of admission: 06/29/24 13:35 Expected date of discharge: 07/02/24 Attending physician: Luis Alfredo Dewey MD Consults: 06/27/24 18:34 Consult Physician Routine Consulting Provider: [facility] Consult Reason/Comments: afib rvr Do you want consulting provider notified?: Yes, Notify in am Primary care physician: Paddy Alanis Hospital Course: Final diagnosis -Altered mental status toxic encephalopathy secondary to excessive opiates or fentanyl patches. Patient may have baseline dementia which is vascular dementia. Mentation has improved -Possible vascular dementia patient is expected to have sundowners -Generalized weakness physical therapy Occupational Therapy evaluation recommending home with homecare and per family they are able to accomodate the patient. -Chronic atrial fibrillation presently rate controlled -Hyperlipidemia -Hypertension -Gastroesophageal reflux disease DVT prophylaxis: Patient is on Eliquis GI prophylaxis Full code Discharge disposition Patient is being discharged in a stable condition with guarded prognosis to home with home care. Patient will follow-up with Dr. Alanis in the outpatient setting upon discharge. Patient is to continue with current medications and outpatient follow-up with as scheduled. Total time taken is greater than 35 minutes. Hospital course This is a 79-year-old female who was recently admitted with altered mental status likely secondary to misuse of fentanyl patches. Patient also with underlying vascular dementia initially being evaluated by PT/OT therapy for rehab although patient does not qualify and will be going home on discharge. Family to have increased care for the patient in the outpatient setting. Patient did have A-fib with RVR and evaluated by cardiology making adjustments to medications and has been cleared by consultations for discharge. Please refer to other consultation notes for further HPI. Recommend holding fentanyl patches for now and outpatient follow-up. Currently no reports of chest pain, shortness of breath, or palpitations. Patient is afebrile. No reports of nausea or vomiting and patient is tolerating diet. Patient will be discharged home today. High risk for readmissions given patient's comorbidities. Physical exam: Gen: This is a 79-year-old female who is awake, alert and oriented x 1-2, well- developed, elderly appearing HEENT: Head is atraumatic, normocephalic. Pupils equal, round. Sclerae is anicteric. NECK: Supple. No JVD. No lymphadenopathy. No thyromegaly. LUNGS: Diminished breath sounds bilaterally otherwise clear to auscultation. No wheezes or rhonchi. No intercostal retractions. HEART: S1, S2 are muffled ABDOMEN: Soft. Bowel sounds are present. No masses. No tenderness. EXTREMITIES: No pedal edema. No calf tenderness. NEUROLOGICAL: Patient is awake, alert and oriented x 12. Cranial nerves 2 through 12 are grossly intact. Please refer to medication reconciliation sheet for a list of medications. The impression and plan of care has been dictated by Cass Banerjee, Nurse Practitioner as directed. Dr. Stas MD I have performed a history and examination and MDM of this patient, discussed the same with the dictator, and agree with the dictator's assessment and plan as written ,documented as a scribe. Based on total visit time, I have performed more than 50% of the visit. Patient Condition at Discharge: Fair Plan - Discharge Summary Discharge Rx Participant: No New Discharge Prescriptions: New Apixaban [Eliquis] 2.5 mg PO BID #30 tab Metoprolol Succinate (ER) [Toprol Xl] 75 mg PO DAILY #45 tab QUEtiapine [SEROquel] 12.5 mg PO HS PRN #15 tab PRN Reason: Agitation Continue tiZANidine [Zanaflex] 4 mg PO TID PRN PRN Reason: Muscle Spasm Atorvastatin [Lipitor] 80 mg PO DAILY traZODone HCL [Desyrel] 25 mg PO HS Pantoprazole Sodium [Protonix] 40 mg PO DAILY Milnacipran HCl [Savella] 12.5 mg PO BID Aspirin EC [Ecotrin Low Dose] 81 mg PO DAILY Albuterol Sulfate [Albuterol Sulfate Hfa] 2 puff INHALATION RT-Q4H PRN PRN Reason: Shortness Of Breath Albuterol Nebulized [Ventolin Nebulized] 2.5 mg INHALATION RT-TID PRN PRN Reason: Shortness Of Breath amLODIPine [Norvasc] 5 mg PO DAILY #7 tab Sertraline [Zoloft] 25 mg PO DAILY Discontinued fentaNYL 100MCG/HR PATCH [Duragesic 100MCG/HR] 1 patch TRANSDERM Q72H Apixaban [Eliquis] 5 mg PO BID Discharge Medication List Albuterol Nebulized [Ventolin Nebulized] 2.5 mg INHALATION RT-TID PRN 04/04/22 [History] Albuterol Sulfate [Albuterol Sulfate Hfa] 2 puff INHALATION RT-Q4H PRN 04/04/22 [History] Aspirin EC [Ecotrin Low Dose] 81 mg PO DAILY 04/04/22 [History] Milnacipran HCl [Savella] 12.5 mg PO BID 04/04/22 [History] Pantoprazole Sodium [Protonix] 40 mg PO DAILY 04/04/22 [History] amLODIPine [Norvasc] 5 mg PO DAILY #7 tab 04/04/22 [Rx] tiZANidine [Zanaflex] 4 mg PO TID PRN 04/04/22 [History] Atorvastatin [Lipitor] 80 mg PO DAILY 06/20/24 [History] Sertraline [Zoloft] 25 mg PO DAILY 06/20/24 [History] traZODone HCL [Desyrel] 25 mg PO HS 06/28/24 [History] Apixaban [Eliquis] 2.5 mg PO BID #30 tab 07/01/24 [Rx] QUEtiapine [SEROquel] 12.5 mg PO HS PRN #15 tab 07/01/24 [Rx] Metoprolol Succinate (ER) [Toprol Xl] 75 mg PO DAILY #45 tab 07/02/24 [Rx] Follow up Appointment(s)/Referral(s): Paddy Alanis MD [Primary Care Provider] - 07/08/24 3:00 pm Maxi Hernández DO [STAFF PHYSICIAN] - 1 Week (please call and make appointment ) [facility] [NON-STAFF] - 1 Week Activity/Diet/Wound Care/Special Instructions: Recommend to continue off the fentanyl however if decision made for patient to continue on the fentanyl patch for pain management would recommend the patches be locked and unaccessible to the patient to avoid additional patches being placed. Discharge/Stand Alone Forms: Who Do I Call?, Adult Foster Detention List, Assisted Living Facilities, Help In The Home Discharge Disposition: HOME WITH HOME HEALTH SERVICES
== END 2024-07-02 15:18 | disposition home health service (06) | DRG 917 ==
LOC: EC 14:19 → 6NMEDSUR 18:35 → 3SCARD 06-28 20:40 → OBSVTOIN 06-29 13:35
PROVIDERS: ADMIT Internal Medicine; ATTEND Internal Medicine
DX: T40.411A Poisoning by fentanyl or fentanyl analogs, accidental (unintentional), initial encounter (principal); G92.9 Unspecified toxic encephalopathy; F01.53 Vascular dementia, unspecified severity, with mood disturbance; I48.19 Other persistent atrial fibrillation; G89.29 Other chronic pain; F32.A Depression, unspecified; F41.9 Anxiety disorder, unspecified; I08.3 Combined rheumatic disorders of mitral, aortic and tricuspid valves; E78.5 Hyperlipidemia, unspecified; I10 Essential (primary) hypertension; I25.2 Old myocardial infarction; J45.909 Unspecified asthma, uncomplicated; K21.9 Gastro-esophageal reflux disease without esophagitis; Z78.1 Physical restraint status; Z79.01 Long term (current) use of anticoagulants; Z79.82 Long term (current) use of aspirin; Z79.899 Other long term (current) drug therapy; Z90.13 Acquired absence of bilateral breasts and nipples; Z90.710 Acquired absence of both cervix and uterus; Z88.0 Allergy status to penicillin; Z88.8 Allergy status to other drugs, medicaments and biological substances; Z90.49 Acquired absence of other specified parts of digestive tract
CPT/HCPCS: 36415; 70450; 71046; 76705; 80048; 80053; 80306; 81001; 82140; 83735; 84484; 85025; 85610; 85730; 87086; 87636; 93005; 93306; 96361; 96365; 96366; 96367; 96372; 96375; 99285